=== PATIENT | female | born 1945 | race Caucasian/White ===

== ENCOUNTER 2019-11-21 15:18 | Outpatient (CLI) | payer MEDICARE, SELFPAY ==
--- NOTE | 2019-11-21 15:38 | XR_ITS ---
WS: [id number] Left foot, 11/21/2019 Clinical Data: LEFT FOOT PAIN Comparison: None. Findings: No fractures or dislocations are seen. No bone destruction or erosion is noted. The joint spaces and soft tissues are normal. There is a plantar spur. XR/XR foot LT min 3V* [id number] Impression: Negative left foot.
== END 2019-11-21 15:19 | disposition home or self-care (01) ==
LOC: RADOUTREAD 15:33
PROVIDERS: Family Provider Family Medicine; Visit Provider Nurse Practitioner Family
DX: M79.672 Pain in left foot (principal)
CPT/HCPCS: 73630

== ENCOUNTER 2020-06-21 20:21 | Observation (INO) | payer MEDICARE, OTHER, SELFPAY ==
--- NOTE | 2020-06-21 20:30 | XRR_ITS ---
PROCEDURE INFORMATION: Exam: XR Chest Exam date and time: 06/21/2020 8:59 PM Age: 75 years old Clinical indication: Shortness of breath; Patient HX: SOB; Additional info: Reduced breath sounds TECHNIQUE: Imaging protocol: XR of the chest. Views: 1 view. COMPARISON: CR [place] RIGHT [id number] 04/17/2017 11:38 AM FINDINGS: Lungs: Unremarkable. No consolidation. Pleural spaces: Unremarkable. No pleural effusion. No pneumothorax. Heart/Mediastinum: Moderate enlargement of the cardiac silhouette. Bones/joints: Unremarkable. XR/XR chest 1V portable [id number] IMPRESSION: No focal acute pulmonary disease.
--- NOTE | 2020-06-21 20:30 | CTR_ITS ---
PROCEDURE INFORMATION: Exam: CT Head Without Contrast Exam date and time: 06/21/2020 9:42 PM Age: 75 years old Clinical indication: Pain; Patient HX: Headache with dizziness and n/v. History of TIA and CVA. TECHNIQUE: Imaging protocol: Computed tomography of the head without contrast. Radiation optimization: All CT scans at this facility use at least one of these dose optimization techniques: automated exposure control; mA and/or kV adjustment per patient size (includes targeted exams where dose is matched to clinical indication); or iterative reconstruction. COMPARISON: No relevant prior studies available. RADIATION DOSE METRICS: Total DLP (mGy-cm): 865.68 FINDINGS: Brain: There is moderate cerebral atrophy. Small lacunar infarct in the posterior limb of the left internal capsule. No intracranial hemorrhage. No intracranial mass. Solorio matter and white matter interfaces are preserved. Midline shift of brain.There is mild diffuse heterogeneity of the white matter attenuation, consistent with chronic white matter ischemic changes. Small areas of encephalomalacia in the right cerebellum. Cerebral ventricles: No ventriculomegaly. Bones/joints: Unremarkable. No acute fracture. Paranasal sinuses: Visualized sinuses are unremarkable. No fluid levels. Mastoid air cells: Visualized mastoid air cells are well aerated. Soft tissues: Unremarkable. CT/CT head wo con* [id number] IMPRESSION: 1. No acute intracranial abnormality. 2. Small areas chronic ischemic brain change. Radiation Dose CTDIVOL = (mGy): DLP = 865.68 (mGy-cm)
--- NOTE | 2020-06-21 20:30 | CTR_ITS ---
PROCEDURE INFORMATION: Exam: CT Angiography Head With Contrast, Arteriography Exam date and time: 06/21/2020 9:42 PM Age: 75 years old Clinical indication: Pain; Other: Dizzy; Headache; Patient HX: FREY with dizziness and n/v. History of TIA and CVA. ; Additional info: Dizziness. H/o cva/tia's TECHNIQUE: Imaging protocol: Computed tomography angiography of the head with contrast. Exam focused on the arteries. 3D rendering (Not supervised by radiologist): MIP and/or 3D reconstructed images were created by the technologist. Radiation optimization: All CT scans at this facility use at least one of these dose optimization techniques: automated exposure control; mA and/or kV adjustment per patient size (includes targeted exams where dose is matched to clinical indication); or iterative reconstruction. Contrast material: VISI 320; Contrast volume: 75 ml; Contrast route: INTRAVENOUS (IV); COMPARISON: CT head wo con* [id number] 06/21/2020 9:59 PM RADIATION DOSE METRICS: Total DLP (mGy-cm): 2421.75 FINDINGS: ANTERIOR CIRCULATION: Right internal carotid artery: Unremarkable. Intracranial segment is patent with no significant stenosis. No aneurysm. Right middle cerebral artery: Unremarkable. No occlusion or significant stenosis. No aneurysm. Right anterior cerebral artery: Unremarkable. No occlusion or significant stenosis. No aneurysm. Left internal carotid artery: Unremarkable. Intracranial segment is patent with no significant stenosis. No aneurysm. Left middle cerebral artery: Unremarkable. No occlusion or significant stenosis. No aneurysm. Left anterior cerebral artery: Unremarkable. No occlusion or significant stenosis. No aneurysm. POSTERIOR CIRCULATION: Right vertebral artery: Unremarkable. No occlusion or significant stenosis. No aneurysm. Left vertebral artery: Unremarkable. No occlusion or significant stenosis. No aneurysm. Basilar artery: Unremarkable. No occlusion or significant stenosis. No aneurysm. Right posterior cerebral artery: Unremarkable. No occlusion or significant stenosis. No aneurysm. Left posterior cerebral artery: Unremarkable. No occlusion or significant stenosis. No aneurysm. Brain: No definite mass, mass effect, or midline shift. There is moderate cerebral atrophy. Cerebral ventricles: No ventriculomegaly. Bones/joints: Unremarkable. No acute fracture. Soft tissues: Unremarkable. IMPRESSION: No intracranial large arterial vessel significant stenosis or occlusion. PROCEDURE INFORMATION: Exam: CT Angiography Neck With Contrast Exam date and time: 06/21/2020 9:42 PM Age: 75 years old Clinical indication: Pain; Other: Dizzy; Headache; Patient HX: FREY with dizziness and n/v. History of TIA and CVA. ; Additional info: Dizziness. H/o cva/tia's TECHNIQUE: Imaging protocol: Computed tomography angiography of the neck with contrast. 3D rendering (Not supervised by radiologist): MIP and/or 3D reconstructed images were created by the technologist. Radiation optimization: All CT scans at this facility use at least one of these dose optimization techniques: automated exposure control; mA and/or kV adjustment per patient size (includes targeted exams where dose is matched to clinical indication); or iterative reconstruction. Contrast material: VISI 320; Contrast volume: 75 ml; Contrast route: INTRAVENOUS (IV); COMPARISON: CT head wo con* [id number] 06/21/2020 9:59 PM RADIATION DOSE METRICS: Total DLP (mGy-cm): 2421.75 FINDINGS: Right common carotid artery: No stenosis. No dissection or occlusion. Right internal carotid artery: No stenosis of the extracranial segment. No dissection or occlusion. Minimal calcified plaque in the bifurcation. Right external carotid artery: No occlusion or stenosis of the origin. Right vertebral artery: No stenosis. No dissection or occlusion. Left common carotid artery: No stenosis. No dissection or occlusion. Left internal carotid artery: No stenosis of the extracranial segment. No dissection or occlusion. Small volume of calcified smoothly marginated plaque in the bifurcation. Left external carotid artery: No occlusion or stenosis of the origin. Left vertebral artery: No stenosis. No dissection or occlusion. Bones/joints: No acute fracture. Soft tissues: Normal. No significant soft tissue swelling. CT/CT angio headneck* [id number] IMPRESSION: 1. Negative for vascular occlusion. 2. Less than 50% stenosis of the carotid arteries. REFERENCES: NASCET CRITERIA. The degree of internal carotid artery stenosis is based on NASCET criteria. Normal is no stenosis. Mild is less than 50% stenosis. Moderate is 50-69% stenosis. Severe is 70% to 99% stenosis. Total occlusion is no detectable patent lumen. Radiation Dose CTDIVOL = (mGy): DLP = 2421.75~2421.75 (mGy-cm)
[2020-06-21 20:34] VITALS: BP 165/79; PULSE 71; RESP 19; TEMP 36.5; O2SAT 97; BMI 45.5
--- NOTE | 2020-06-21 20:35 | ECG_ITS ---
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 Measurements Intervals [place] Rate: 71 P: 59 VA: 201 QRS: 21 QRSD: 112 T: 40 QT: 415 QTc: 452 Interpretive Statements SINUS RHYTHM WITH OCCASIONAL ECTOPIC PREMATURE COMPLEXES SEPTAL MYOCARDIAL INFARCTION , OF INDETERMINATE AGE [40+ ms Q WAVE IN V1/V2] No previous ECG available for comparison Electronically Signed On 06-21-2020 20:50:25 CDT by Tony Rosas M.D. [id number]
[2020-06-21 20:39] VITALS: BP 165/79; PULSE 73; RESP 17; O2SAT 98
[2020-06-21] MEDS: sodium chloride 0.9% 1,000 ML 999 ML IV (20:49)
[2020-06-21] MEDS: metoclopramide 5 mg/mL SDV 2 mL 10 MG IVP (20:49)
[2020-06-21 20:50] VITALS: BP 165/79; PULSE 73; RESP 16; O2SAT 99
[2020-06-21 20:50] LABS: Basophils # 0.1 10^3/uL (0.0-0.1); Eosinophils # 0.1 10^3/uL (0.0-0.8); Eosinophils % 1.2 %; Hematocrit 44.7 % (37.0-47.0); Hemoglobin 14.6 g/dL (11.5-15.3); Lymphocytes # 1.8 10^3/uL (0.8-4.8); Lymphocytes % 22.2 %; Mean Corpuscular HGB Conc 32.7 g/dL (30.0-36.0); Mean Corpuscular Hemoglobin 30.9 pg (28.0-34.0); Mean Corpuscular Volume 94.5 fL (81-99); Mean Platelet Volume 11.9 fL (7.4-10.4); Monocytes # 0.8 10^3/uL (0.2-0.9); Monocytes % 9.4 %; Neutrophils # 5.44 10^3/uL (1.8-7.7); Neutrophils % 65.8 %; Nucleated Red Blood Cells % 0 %; Platelet Count 210 10^3/cmm (130-400); Red Blood Count 4.73 10^6/uL (4.1-5.3); Red Cell Distribution Width 14.2 % (12.1-15.1); White Blood Count 8.3 10^3/uL (4.0-10.0)
[2020-06-21 21:15] LABS: Troponin(5th) Baseline 13 ng/L (0-10)
[2020-06-21 21:19] LABS: Lactate (Lactic Acid level) 1.5 mmol/L (0.5-2.2)
[2020-06-21 21:25] LABS: Alanine Aminotransferase 18 U/L (0-33); Albumin Level 4.2 g/dL (3.5-5.2); Alkaline Phosphatase 79 IU/L (35-105); Aspartate Amino Transferase 19 U/L (0-32); Blood Urea Nitrogen 32 mg/dL (8-23); Calcium 8.9 mg/dL (8.5-10.5); Carbon Dioxide 24 mmol/L (22-29); Chloride 101 mmol/L (98-107); Globulin 2.5 g/dL (1.3-4.6); Glucose 136 mg/dL (65-115); Lipase 100 U/L (13-60); NT Pro B Type Natriuretic Pept 345 pg/mL (0-450); Osmolality Calculated 291 mOsm/kg (285-295); Sodium 136 mmol/L (136-145); Total Bilirubin 0.2 mg/dL (0.15-1.2); Total Protein 6.7 g/dL (6.6-8.7)
[2020-06-21 21:26] LABS: Anion Gap 15.4 (5-19); Potassium 4.4 mmol/L (3.5-5.1)
[2020-06-21 21:33] VITALS: BP 162/81; PULSE 72; RESP 21; O2SAT 92
[2020-06-21 22:29] VITALS: BP 176/76; PULSE 72; RESP 16; O2SAT 94
--- NOTE | 2020-06-21 22:35 | ECG_ITS ---
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 Measurements Intervals [place] Rate: 76 P: 66 [place]: 191 QRS: 25 QRSD: 113 T: 46 QT: 408 QTc: 459 Interpretive Statements SINUS RHYTHM MODERATE INTRAVENTRICULAR CONDUCTION DELAY [110+ ms QRS DURATION] INTERPRETATION BASED ON A DEFAULT AGE OF 40 YEARS Compared to ECG 06/21/2020 20:44:28 Intraventricular conduction delay now present Myocardial infarct finding no longer present Electronically Signed On 06-24-2020 12:25:44 CDT by Svetlana Milton M.D. [id number]
[2020-06-21 23:10] LABS: Specific Gravity, Urine 1.015 (1.005-1.030); Urine Appearance Hazy (CLEAR); Urine Color Yellow (Yellow); pH Urine 5 (5-7)
[2020-06-21 23:11] LABS: Add Urine Microscopic? YES; Bilirubin Urine Neg (Negative); Blood Urine Neg (Negative); Glucose Urine UA 4+ (Normal); Ketones Urine 1+ (Negative); Leukocyte Esterase Urine 1+ (Negative); Nitrate Urine Negative (Negative); Protein Urine 1+ (Negative); RBC Urine 0-4 /hpf (0-2); Urobilinogen Urine Norm (Negative)
[2020-06-21 23:12] LABS: Add Urine Culture? Yes; Bacteria Urine 1+ /hpf; Squamous Epithelial Cell Urine 0-4 /hpf (0-5); WBC Urine 25-40 /hpf (0-5)
[2020-06-21 23:44] LABS: Troponin 5 2HR 12.73 ng/L (0-10)
[2020-06-21] MEDS: iodixanol 320 mg/mL 100mL Btl IV (23:48)
[2020-06-21 23:55] LABS: Troponin 5 2HR Delta -0.27 ABS# (0-10)
[2020-06-22] VITALS (9 sets, daily range): BP systolic 132–154; BP diastolic 73–96; PULSE 56–76; RESP 17–18; TEMP 36.4–36.9; O2SAT 93–96
--- NOTE | 2020-06-22 00:22 | P.HP_ITS ---
Providers/Chief Complaint Primary Care Provider: Karan Staples DO Chief Complaint: headache, vomiting and dizzy History of Present Illness Michelle Lutz is a 75 year old female who has history of type 2 diabetes, hypertension, previous CVA, cerebellar stroke presented today with chief complaint of nausea vomiting dizziness. Patient is stating that she worked all day today and when around 7 PM she was watching television she started experiencing blurry vision associated with nausea and vomiting she has had multiple episodes. She did not experience any chest pain, fever, shortness of breath, diarrhea or dysuria. No facial droop, or focal motor deficits were noted by the patient. She called her son who brought her to the hospital. Son is stating that when he arrived he noticed mild slurring of speech however he is also endorsing that because of previous CVA she gets slurring of speech with anxiety and stressful situations. Her symptoms totally resolved by the time she arrived in the ER. She denies denies any recurrent nausea or vomiting. Of note, she is endorsing constant tinnitus of right ear, pressure behind her right eye, has recently received intraocular injections for macular degeneration, patient is stating that one time her pressure in the eye was 33, however recently it was 16&18mmhg, at the time my evaluation I do not see any hardening of her eyeball, no redness or active vision loss however she is endorsing a bubble that she is able to see but denying floaters. EKG showing sinus rhythm with PVCs, hemodynamically stable hypertensive CBC BMP unremarkable, CT head and angiogram head and neck unremarkable less than 50% carotid stenosis. [facility] telemetry stroke team recommended overnight monitoring and MRI, patient wants to get diagnostic MRI in the morning Review of Systems Const: Denies: fever(s) Eyes: Reports: change in vision, blurry vision and seeing flashes ENMT: Denies: throat pain Card: Denies: chest pain Resp: Denies: dyspnea GI: Reports: nausea and vomiting : Denies: flank pain Musc: Denies: neck pain Skin/Breast: Denies: rash Neuro: Denies: headache(s) Psych: Denies: anxiety Endo: Denies: polyuria Terrence/Lymph: Denies: easy bruising All/Imm: Denies: urticaria Medications/Allergies Allergies Allergy/AdvReac Type Severity Reaction Status Date / Time Penicillins Allergy ALGY-Hives Verified 06/21/20 20:39 PFSH Acute PFSH: Medical History Diabetes DJD (degenerative joint disease) Dyslipidemia Hypertension Hypothyroid Osteoporosis Surgical History H/O arthroscopy Family History Other CAD (coronary artery disease) Cancer Diabetes Hypertension Social History Smoking and tobacco status: never smoked Alcohol intake: never Substance/Drug Use: never Lives independently: Yes Housing: House Vitals/I&O/Wt Last Vital Signs Temp 97.7 F 06/21/20 20:34 Pulse 72 06/21/20 22:29 Resp 16 06/21/20 22:29 BP 176/76 06/21/20 22:29 Pulse Ox 94 06/21/20 22:29 06/21/20 06/21/20 06/22/20 14:59 22:59 06:59 Intake Total 1000 / 1000 Balance 1000 / 1000 Weight last 48 hrs Weight 127.913 kg Physical Exam Narrative: EXAM NARRATIVE: elderly female currently laying supine in her bed without any active discomfort chest pain abdominal pain or shortness of breath Son at the bedside Hemodynamically stable saturating well on room air Morbid obesity S1, S2 no murmur appreciated, no carotid bruit Patient is endorsing tinnitus of right ear No acute respiratory distress no audible wheezing or stridor Abdomen distended bowel sounds present soft on palpation Lower extremity no edema gangrene or ulcer NIH score 0 Awake alert oriented x3 GCS 15 No skin changes of cellulitis gangrene or joint swelling noted Data : 06/21/20 20:30 06/21/20 20:30 A&P Assessment and plan (1) Dizziness: Status: Acute (2) Vomiting: Status: Acute (3) Tinnitus: Status: Acute Additional A&P Information TIA Her symptoms of dizziness nausea and vomiting resolved Previous history of cerebellar stroke At home she takes high-dose aspirin along Plavix, will check lipid panel and A1c MRI head in the morning to rule out acute stroke, for ischemic stroke I do not think dual antiplatelet therapy regimen will change however she might benefit from P2 Y 12 assay to see effectiveness of Plavix My other differential would be glaucoma which can present with similar symptoms, if her MRI is unremarkable would recommend retinal exam and glaucoma evaluation, no active acute glaucoma signs or symptoms no eye redness or headache Patient is complaining of constant tinnitus, she recently got intraocular steroid injections as well, M?ni?re's disease would also be considered in differential, she is morbidly obese with type 2 diabetes Do not hear any carotid bruit or aortic stenosis murmur that can present with co nstant tinnitus, MRI will rule out any intracranial tumor as well EKG showing PVCs we will monitor on telemetry overnight Type 2 diabetes: Moderate sliding scale check A1c panel, consistent carb diet Hypertension: Would use lisinopril and amlodipine for now, would not aggressively decrease her blood pressure for now Cardiac/consistent carb diet Full code DVT prophylaxis Lovenox Attestations Medical Necessity Statement*: Anticipating discharge in less than 48 hours will need MRI for TIA work-up Time Spent in Patient Care: (>than 50% of time spent in counselling and/or direct pt care on unit) . 50mins Coding Level of Care Code Acute Senior Application Programmer for Chg Fwd Diagnoses Dizziness R42 Vomiting R11.10 Tinnitus H93.19
--- NOTE | 2020-06-22 00:27 | W.ED.HA ---
HPI - Headache General: Chief Complaint: Headache Stated Complaint: headache, vomiting and dizzy Time Seen by Provider: 06/21/20 20:30 History of Present Illness: HPI Narrative: The patient is a 75-year-old female with past medical history multiple CVAs who comes to the ER complaining of dizziness and acute nausea and vomiting. She says the past couple days she woke up not feeling well particularly today. This evening approximately 1 hour prior to arrival she had acute dizziness nausea and vomiting. She says one of her strokes in the past presented with acute nausea and vomiting and dizziness as well. Denies headache. Onset description: gradually Severity: moderate Exacerbating factors: other (Movement makes her dizziness worse) Associated symptoms: Reports nausea, vomiting and other (Dizziness); Deny chest pain, confusion or rash Review of Systems General: Reports: 10 or more systems reviewed and unremarkable except in HPI and below Const: Denies: fatigue Eyes: Denies: change in vision, blurry vision or eye redness ENMT: Denies: throat pain, swelling of lips/tongue, ear or mastoid pain or nasal congestion Card: Denies: chest pain, palpitations, irregular heart rhythm, edema, dyspnea on exertion or orthopnea Resp: Denies: dyspnea, productive cough or non-productive cough GI: Reports: nausea and vomiting : Denies: flank pain, difficulty voiding, urinary frequency or urinary urgency Musc: Denies: neck pain, back pain, extremity pain, joint pain, joint redness, limited range of motion or muscle weakness Skin/Breast: Denies: rash, pruritus, erythema, skin pain or skin tenderness Neuro: Reports: dizziness; Denies: headache(s), numbness in extremities, weakness in extremities, sensory changes, difficulty walking, confusion or Slurred speech present Psych: Denies: anxiety or depression Endo: Denies: polyuria All/Imm: Denies: urticaria, throat swelling or tongue swelling PFSH ED PFSH: Medical History (Updated 06/22/20 @ 00:35 by Tino Holliday MD) Diabetes DJD (degenerative joint disease) Dyslipidemia Hypertension Hypothyroid Osteoporosis Surgical History (Updated 06/22/20 @ 00:26 by Duncan Galindo MD) H/O arthroscopy Family History (Updated 06/22/20 @ 00:26 by Duncan Galindo MD) Other CAD (coronary artery disease) Cancer Diabetes Hypertension Social History (Updated 06/22/20 @ 00:26 by Duncan Galindo MD) Smoking and tobacco status: never smoked Alcohol intake: never Substance/Drug Use: never Lives independently: Yes Housing: House Physical Exam Const: COMMON NORMALS: no acute distress, average body habitus, patient oriented x3, no limitations, healthy appearing, alert and well nourished GENERAL APPEARANCE: cooperative, comfortable, well kempt and well developed ORIENTATION/CONSCIOUSNESS: Yes awake, Yes oriented to person, Yes oriented to place and Yes oriented to time HENMT: COMMON NORMALS: normocephalic, external ears normal and Normal external nose present HEAD & SCALP: normal to inspection and normocephalic NOSE: Normal external nose present EXTERNAL EAR: Yes external ears normal MOUTH: Normal oral and palatal mucosa present THROAT: posterior oropharynx normal Eye: COMMON NORMALS: Equal, round and reactive pupils present and EOMs intact bilaterally GENERAL EYE: appearance normal, both eyes and all related structures PUPIL: Yes Equal, round and reactive pupils present Neck/C-Spine: COMMON NORMALS: full ROM, no lymphadenopathy, no meningeal signs and no JVD GENERAL: Yes normal visual inspection Lymph: LYMPHATIC: no lymphadenopathy noted Chest: COMMONS NORMALS: normal inspection of the chest and normal palpation of entire chest wall Resp: COMMON NORMALS: normal respiratory effort, No retractions, No use of accessory muscles, clear to auscultation bilaterally and percussion normal EFFORT & INSPECTION: Yes able to speak in complete sentences AUSCULTATION: clear to auscultation bilaterally PERCUSSION: percussion normal Cardio: COMMON NORMALS: no JVD, regular rate, regular rhythm, S1 normal heart sound present, S2 normal heart sound present and Peripheral pulses 2+ throughout RATE: regular rate RHYTHM: regular rhythm HEART SOUNDS: S1 normal heart sound present and S2 normal heart sound present PERIPHERAL PULSES: Peripheral pulses 2+ throughout GI: COMMON NORMALS: Normal to inspection, nondistended, normoactive bowel sounds present, Soft to palpation, non-tender and no masses INSPECTION: Yes normal to inspection PALPATION: Yes Soft to palpation : COMMON NORMALS: Yes no CVA tenderness BLADDER/KIDNEY EXAM: Yes no CVA tenderness Back/Pelvis: COMMON NORMALS: no CVA tenderness, thoracic and lumbar spine normal to inspection, no thoracic nor lumbar tenderness and thoraco-lumbar ROM normal Extremity: COMMON NORMALS: normal to inspection, full ROM, capillary refill normal, no joint enlargement and no pedal edema GENERAL: Yes normal exam except as noted Neuro: COMMON NORMALS: patient oriented x3, CN's II-XII intact bilaterally, moves all extremities, no focal motor deficits, no sensory deficits noted and gait normal SENSORIUM/ORIENTATION: Yes alert, Yes oriented to person, Yes oriented to place and Yes oriented to time MENINGEAL SIGNS: Yes no meningeal signs Psych: COMMON NORMALS: mental status grossly normal, Normal thought process present, cooperative, normal affect and speech normal APPEARANCE: Yes well kempt ATTITUDE: Yes calm SPEECH: Yes normal speech THOUGHT PROCESS: Normal thought process present Skin: COMMON NORMALS: no rashes or lesions noted GENERAL SKIN EXAM: no rashes or lesions noted Course Vital Signs: Vital signs: Vital Signs Temperature 97.7 F 06/21/20 20:34 Pulse Rate 72 06/21/20 22:29 Respiratory Rate 16 06/21/20 22:29 Blood Pressure 176/76 06/21/20 22:29 Pulse Oximetry 94 06/21/20 22:29 MDM - Headache MDM Narrative: Medical decision making narrative: The patient is a 75-year-old female who came to the ER with acute dizziness and nausea and vomiting. She was given IV fluids and Zofran with improvement of those symptoms. She says she is presented before with a stroke similarly. CT does show she has had an old cerebellar stroke which does present with nausea and dizziness though there is no acute hemorrhage or stroke noted. Discussed with [facility] stroke Dr. Philippe who recommended observation and MRI in the morning. CT angiogram head and neck shows no significant stenoses. Of note her creatinine is mildly elevated and she does have chronic kidney disease. Benefits of performing CT angiogram of head and neck outweigh the risks of worsening kidney function. IV fluids should help this some as well. Discussed with Dr. Galindo who accepts for observation. Her symptoms did mostly resolved in the ED after Zofran and fluids which is encouraging. She never had focal weakness or slurred speech in the ED. Lab Data: Labs: Lab Results 06/21/20 06/21/20 06/21/20 Range/Units 20:30 20:30 20:30 WBC 8.3 (4.0-10.0) 10^3/ uL RBC 4.73 (4.1-5.3) 10^6/u L Hgb 14.6 (11.5-15.3) g/dL Hct 44.7 (37.0-47.0) % MCV 94.5 (81-99) fL MCH 30.9 (28.0-34.0) pg MCHC 32.7 (30.0-36.0) g/dL RDW 14.2 (12.1-15.1) % Plt Count 210 (130-400) 10^3/c mm MPV 11.9 H (7.4-10.4) fL Neut % (Auto) 65.8 % Lymph % (Auto) 22.2 % Divide % (Auto) 9.4 % Eos % (Auto) 1.2 % Baso % (Auto) 1.0 % Neut # (Auto) 5.44 (1.8-7.7) 10^3/u L Lymph # (Auto) 1.8 (0.8-4.8) 10^3/u L Divide # (Auto) 0.8 (0.2-0.9) 10^3/u L Eos # (Auto) 0.1 (0.0-0.8) 10^3/u L Baso # (Auto) 0.1 (0.0-0.1) 10^3/u L Nucleated RBC % (a uto) 0 % Nucleated RBCs # 0.0 /100WBC Sodium 136 (136-145) mmol/L Potassium 4.4 (3.5-5.1) mmol/L Chloride 101 (98-107) mmol/L Carbon Dioxide 24 (22-29) mmol/L Anion Gap 15.4 (5-19) BUN 32 H (8-23) mg/dL Creatinine 1.4 H (0.5-0.9) mg/dL GFR Calculation Not Reportable Glucose 136 H (65-115) mg/dL Calculated Osmolal ity 291 (285-295) mOsm/k g Lactate 1.5 (0.5-2.2) mmol/L Calcium 8.9 (8.5-10.5) mg/dL Total Bilirubin 0.2 (0.15-1.2) mg/dL AST 19 (0-32) U/L ALT 18 (0-33) U/L Alkaline Phosphata se 79 (35-105) IU/L Troponin T Baselin e (0-10) ng/L Troponin T 120 Min [place] (0-10) ng/L Delta Troponin T (0-10) ABS# NT-Pro-B Natriuret Pep 345 (0-450) pg/mL Total Protein 6.7 (6.6-8.7) g/dL Albumin 4.2 (3.5-5.2) g/dL Globulin 2.5 (1.3-4.6) g/dL Lipase 100 H (13-60) U/L Urine Color (Yellow) Urine Appearance (CLEAR) Urine pH (5-7) Ur Specific Gravit y (1.005-1.030) Urine Protein (Negative) Urine Glucose (UA) (Normal) Urine Ketones (Negative) Urine Blood (Negative) Urine Nitrate (Negative) Urine Bilirubin (Negative) Urine Urobilinogen (Negative) mg/dL Ur Leukocyte Natasha ase (Negative) Urine RBC (0-2) /hpf Urine WBC (0-5) /hpf Ur Squamous Epith Cells (0-5) /hpf Amorphous Sediment Urine Bacteria (NONE) /hpf 06/21/20 06/21/20 06/21/20 Range/Units 20:30 21:40 23:10 WBC (4.0-10.0) 10^3/ uL RBC (4.1-5.3) 10^6/u L Hgb (11.5-15.3) g/dL Hct (37.0-47.0) % MCV (81-99) fL MCH (28.0-34.0) pg MCHC (30.0-36.0) g/dL RDW (12.1-15.1) % Plt Count (130-400) 10^3/c mm MPV (7.4-10.4) fL Neut % (Auto) % Lymph % (Auto) % Divide % (Auto) % Eos % (Auto) % Baso % (Auto) % Neut # (Auto) (1.8-7.7) 10^3/u L Lymph # (Auto) (0.8-4.8) 10^3/u L Divide # (Auto) (0.2-0.9) 10^3/u L Eos # (Auto) (0.0-0.8) 10^3/u L Baso # (Auto) (0.0-0.1) 10^3/u L Nucleated RBC % (a uto) % Nucleated RBCs # /100WBC Sodium (136-145) mmol/L Potassium (3.5-5.1) mmol/L Chloride (98-107) mmol/L Carbon Dioxide (22-29) mmol/L Anion Gap (5-19) BUN (8-23) mg/dL Creatinine (0.5-0.9) mg/dL GFR Calculation Glucose (65-115) mg/dL Calculated Osmolal ity (285-295) mOsm/k g Lactate (0.5-2.2) mmol/L Calcium (8.5-10.5) mg/dL Total Bilirubin (0.15-1.2) mg/dL AST (0-32) U/L ALT (0-33) U/L Alkaline Phosphata se (35-105) IU/L Troponin T Baselin e 13 H (0-10) ng/L Troponin T 120 Min [place] 12.73 H (0-10) ng/L Delta Troponin T -0.27 L (0-10) ABS# NT-Pro-B Natriuret Pep (0-450) pg/mL Total Protein (6.6-8.7) g/dL Albumin (3.5-5.2) g/dL Globulin (1.3-4.6) g/dL Lipase (13-60) U/L Urine Color Yellow (Yellow) Urine Appearance Hazy A (CLEAR) Urine pH 5 (5-7) Ur Specific Gravit y 1.015 (1.005-1.030) Urine Protein 1+ H (Negative) Urine Glucose (UA) 4+ H (Normal) Urine Ketones 1+ H (Negative) Urine Blood Neg (Negative) Urine Nitrate Negative (Negative) Urine Bilirubin Neg (Negative) Urine Urobilinogen Norm (Negative) mg/dL Ur Leukocyte Natasha ase 1+ H (Negative) Urine RBC 0-4 H (0-2) /hpf Urine WBC 25-40 H (0-5) /hpf Ur Squamous Epith Cells 0-4 H (0-5) /hpf Amorphous Sediment Not Reportable Urine Bacteria 1+ H (NONE) /hpf Discharge Plan Discharge Patient Disposition: Placed in Observation Clinical Impression: Dizziness, Vomiting Coding Level of Care Code ED Technical Administrative Assistant for Padilla Boyer
[2020-06-22 01:20] LABS: Chol HDL Ratio 3.69 mg/dL (0.0-4.40); Cholesterol 203 mg/dL (0-200); HDL Cholesterol 55 mg/dL (60-100); LDL Cholesterol Calculated 105 mg/dL (50-129); LDL HDL Ratio 1.91 RATIO (0.00-3.22); Triglycerides 215 mg/dL (0-150)
[2020-06-22 01:31] LABS: Estmated Average Glucose 212
[2020-06-22 03:18] LABS: Troponin 5 6HR 15.35 ng/L (0-10); Troponin 5 6HR Delta 2.35 ng/L (0-12)
[2020-06-22 03:28] LABS: Thyroid Stimulating Hormone 8.47 uIU/mL (0.27-4.20)
[2020-06-22] MEDS: atorvastatin 40 mg Tablet PO (04:29)
[2020-06-22] MEDS: enoxaparin 40 mg/0.4 mL Syringe SUBCUT (04:29)
[2020-06-22] MEDS: levothyroxine 25 mcg Tablet PO (06:06)
[2020-06-22 06:19] LABS: Glucose Point of Care 134 mg/dL (70-110)
[2020-06-22] MEDS: aspirin 325 mg EC Tablet PO (08:50)
[2020-06-22] MEDS: clopidogrel 75 mg Tablet PO (08:50)
[2020-06-22] MEDS: losartan 50 mg Tablet 25 MG PO (08:51)
[2020-06-22] MEDS: amlodipine 10 mg Tablet PO (08:51)
[2020-06-22] MEDS: metoprolol tartrate 25 mg Tablet PO (08:51)
--- NOTE | 2020-06-22 10:15 | MR_ITS ---
WS: [id number] MRI BRAIN WITHOUT CONTRAST HISTORY: TIA COMPARISON: 06/21/2020 CT head TECHNIQUE: Diffusion imaging, multiplanar T1, T2 and FLAIR imaging obtained. No acute diffusion-weighted abnormalities. There is extensive T2 and FLAIR signal hyperintensities th roughout the brain. Distribution is bilateral. There is a larger infarct in the RIGHT cerebellum. No evidence for hemorrhage. Ventricles and extra-axial spaces are normal. Normal appearance of the pituitary gland. Dural venous sinuses and [place] demonstrate no abnormality on this unenhanced studies. Paranasal sinuses: Clear. Mastoid air cells: Normal. Calvarium and scalp: Intact. MR/MR head wo con* [id number] IMPRESSION: 1. No evidence for an acute hemorrhage or acute infarct. 2. Moderate bilateral nearly symmetric chronic microvascular ischemic disease with the prior RIGHT cerebellar infarct.
[2020-06-22 11:19] LABS: Glucose Point of Care 287 mg/dL (70-110)
[2020-06-22 12:12] LABS: Basophils # 0.1 10^3/uL (0.0-0.1); Eosinophils # 0.1 10^3/uL (0.0-0.8); Eosinophils % 0.9 %; Hematocrit 43.4 % (37.0-47.0); Hemoglobin 13.3 g/dL (11.5-15.3); Lymphocytes # 1.1 10^3/uL (0.8-4.8); Lymphocytes % 15.5 %; Mean Corpuscular HGB Conc 30.6 g/dL (30.0-36.0); Mean Corpuscular Hemoglobin 30.5 pg (28.0-34.0); Mean Corpuscular Volume 99.5 fL (81-99); Mean Platelet Volume 11.9 fL (7.4-10.4); Monocytes # 0.6 10^3/uL (0.2-0.9); Monocytes % 8.2 %; Neutrophils # 5.14 10^3/uL (1.8-7.7); Neutrophils % 74.3 %; Nucleated Red Blood Cells % 0 %; Platelet Count 161 10^3/cmm (130-400); Red Blood Count 4.36 10^6/uL (4.1-5.3); Red Cell Distribution Width 14.6 % (12.1-15.1); White Blood Count 6.9 10^3/uL (4.0-10.0)
--- NOTE | 2020-06-22 12:21 | PM.DCS ---
Discharge Providers Date of Admission: 06/22/20 01:34 Date of Discharge: June 22, 2020 Attending Provider at Admission: Duncan Galindo MD Attending Provider at Discharge: Jad Renteria MD Primary Care Provider: Karan Staples DO Diagnoses at Discharge Discharge Diagnosis (1) Dizziness: Status: Acute (2) Vomiting: Status: Acute (3) Tinnitus: Status: Acute (4) Diabetes: Status: Acute (5) Hypertension: Status: Acute Reason for Visit Reason for Visit: headache, vomiting and dizzy Hospital Course Hospital Course Michelle Lutz is a 75 year old female who has history of type 2 diabetes, hypertension, previous CVA, cerebellar stroke presented today with chief complaint of nausea vomiting dizziness. Patient is stating that she worked all day today and when around 7 PM she was watching television she started experiencing blurry vision associated with nausea and vomiting she has had multiple episodes. She did not experience any chest pain, fever, shortness of breath, diarrhea or dysuria. No facial droop, or focal motor deficits were noted by the patient. She called her son who brought her to the hospital. Son is stating that when he arrived he noticed mild slurring of speech however he is also endorsing that because of previous CVA she gets slurring of speech with anxiety and stressful situations. Her symptoms totally resolved by the time she arrived in the ER. She denies denies any recurrent nausea or vomiting. Of note, she is endorsing constant tinnitus of right ear, pressure behind her right eye, has recently received intraocular injections for macular degeneration, patient is stating that one time her pressure in the eye was 33, however recently it was 16&18mmhg, at the time my evaluation I do not see any hardening of her eyeball, no redness or active vision loss however she is endorsing a bubble that she is able to see but denying floaters. EKG showing sinus rhythm with PVCs, hemodynamically stable hypertensive CBC BMP unremarkable, CT head and angiogram head and neck unremarkable less than 50% carotid stenosis. [facility] telemetry stroke team recommended overnight monitoring and MRI, patient wants to get diagnostic MRI in the morning. Patient was monitored in the hospital. Patient did not have any further events. Telemetry was stable. MRI was done which was negative for any acute ischemia. Blood work showed deranged lipid panel and A1c of 9. On admission she was also found to have mild KELSEY with low blood pressures for which her home dose of antihypertensives were adjusted. Going forward she is supposed to take losartan 25 mg once daily, metoprolol 50 mg twice daily. For diabetes she supposed to continue her Jardiance and 70/30 insulin 40 units at night and as per fasting blood sugar in the morning. Patient is been discharged hemodynamically stable condition with advice to follow-up with her primary care provider within next 4 to 5 days. Patient's care plan was discussed with her in detail and she was agreeable to all. Physical Exam Narrative: EXAM NARRATIVE: elderly female currently laying supine in her bed without any active discomfort chest pain abdominal pain or shortness of breath Son at the bedside Hemodynamically stable saturating well on room air Morbid obesity S1, S2 no murmur appreciated, no carotid bruit Patient is endorsing tinnitus of right ear No acute respiratory distress no audible wheezing or stridor Abdomen distended bowel sounds present soft on palpation Lower extremity no edema gangrene or ulcer NIH score 0 Awake alert oriented x3 GCS 15 No skin changes of cellulitis gangrene or joint swelling noted Discharge Data Data Completed and Pending: Completed Studies During Hospitalization Category Date Time Status CT angio headneck * [id number] Urge nt Cat Scan 06/21/20 20:[address] head wo con* 7 0450 Urgent Cat Scan 06/21/20 20:30 Completed XR chest 1V myrtle ble [id number] Urgent Exams 06/21/20 20:30 Completed MR head wo con* 7 0551 Routine MRI 06/22/20 10:15 Completed Pending at discharge Category Date Time Status Complete Blood Co unt w/Auto Stat Lab 06/22/20 12:02 Results Comprehensive Met abolic Panel Routi ne Lab 06/22/20 12:02 Received Free T4 Free Thyr oxine Routine Lab 06/22/20 12:02 Received T3 Free Routine Lab 06/22/20 12:02 Received TIBC [Total Iron Binding Capacity] Routine Lab 06/22/20 12:02 Received Urine Culture Sta t Lab 06/21/20 21:40 Received CV echo complete* [id number] Routine Ultrasound 06/22/20 11:40 Ordered Labs from last 24 hours 06/22/20 06/22/20 06/22/20 06:15 02:34 02:34 WBC RBC Hgb Hct MCV MCH MCHC RDW Plt Count MPV Neut % (Auto) Lymph % (Auto) Stevens % (Auto) Eos % (Auto) Baso % (Auto) Neut # (Auto) Lymph # (Auto) Stevens # (Auto) Eos # (Auto) Baso # (Auto) Nucleated RBC % (a uto) Nucleated RBCs # Sodium Potassium Chloride Carbon Dioxide Anion Gap BUN Creatinine GFR Calculation Glucose POC Glucose 134 H Estimat Average Gl ucose Hemoglobin A1c Calculated Osmolal ity Lactate Calcium Iron TIBC % Saturation Unsat Iron Binding Total Bilirubin AST ALT Alkaline Phosphata se Troponin T Baselin e Troponin T 120 Min ak chin Delta Troponin T Troponin T Hi Sens 6Hr 15.35 H Troponin T Hi Sens 6Hr Delta 2.35 NT-Pro-B Natriuret Pep Total Protein Albumin Globulin Triglycerides Cholesterol LDL Cholesterol, C alc HDL Cholesterol LDL/HDL Ratio Cholesterol/HDL Ra ted Lipase TSH 8.47 H Free T4 Free T3 Urine Color Urine Appearance Urine pH Ur Specific Gravit y Urine Protein Urine Glucose (UA) Urine Ketones Urine Blood Urine Nitrate Urine Bilirubin Urine Urobilinogen Ur Leukocyte Natasha ase Urine RBC Urine WBC Ur Squamous Epith Cells Amorphous Sediment Urine Bacteria 06/22/20 06/22/20 06/21/20 00:01 00:01 23:10 WBC RBC Hgb Hct MCV MCH MCHC RDW Plt Count MPV Neut % (Auto) Lymph % (Auto) Stevens % (Auto) Eos % (Auto) Baso % (Auto) Neut # (Auto) Lymph # (Auto) Stevens # (Auto) Eos # (Auto) Baso # (Auto) Nucleated RBC % (a uto) Nucleated RBCs # Sodium Potassium Chloride Carbon Dioxide Anion Gap BUN Creatinine GFR Calculation Glucose POC Glucose Estimat Average Gl ucose 212 Hemoglobin A1c 9.0 H Calculated Osmolal ity Lactate Calcium Iron TIBC % Saturation Unsat Iron Binding Total Bilirubin AST ALT Alkaline Phosphata se Troponin T Baselin e Troponin T 120 Min ak chin 12.73 H Delta Troponin T -0.27 L Troponin T Hi Sens 6Hr Troponin T Hi Sens 6Hr Delta NT-Pro-B Natriuret Pep Total Protein Albumin Globulin Triglycerides 215 H Cholesterol 203 H LDL Cholesterol, C alc 105 HDL Cholesterol 55 L LDL/HDL Ratio 1.91 Cholesterol/HDL Ra ted 3.69 Lipase TSH Free T4 Free T3 Urine Color Urine Appearance Urine pH Ur Specific Gravit y Urine Protein Urine Glucose (UA) Urine Ketones Urine Blood Urine Nitrate Urine Bilirubin Urine Urobilinogen Ur Leukocyte Natasha ase Urine RBC Urine WBC Ur Squamous Epith Cells Amorphous Sediment Urine Bacteria 06/21/20 06/21/20 06/21/20 21:40 20:30 20:30 WBC RBC Hgb Hct MCV MCH MCHC RDW Plt Count MPV Neut % (Auto) Lymph % (Auto) Stevens % (Auto) Eos % (Auto) Baso % (Auto) Neut # (Auto) Lymph # (Auto) Stevens # (Auto) Eos # (Auto) Baso # (Auto) Nucleated RBC % (a uto) Nucleated RBCs # Sodium Potassium Chloride Carbon Dioxide Anion Gap BUN Creatinine GFR Calculation Glucose POC Glucose Estimat Average Gl ucose Hemoglobin A1c Calculated Osmolal ity Lactate 1.5 Calcium Iron TIBC % Saturation Unsat Iron Binding Total Bilirubin AST ALT Alkaline Phosphata se Troponin T Baselin e 13 H Troponin T 120 Min ak chin Delta Troponin T Troponin T Hi Sens 6Hr Troponin T Hi Sens 6Hr Delta NT-Pro-B Natriuret Pep Total Protein Albumin Globulin Triglycerides Cholesterol LDL Cholesterol, C alc HDL Cholesterol LDL/HDL Ratio Cholesterol/HDL Ra ted Lipase TSH Free T4 Free T3 Urine Color Yellow Urine Appearance Hazy A Urine pH 5 Ur Specific Gravit y 1.015 Urine Protein 1+ H Urine Glucose (UA) 4+ H Urine Ketones 1+ H Urine Blood Neg Urine Nitrate Negative Urine Bilirubin Neg Urine Urobilinogen Norm Ur Leukocyte Natasha ase 1+ H Urine RBC 0-4 H Urine WBC 25-40 H Ur Squamous Epith Cells 0-4 H Amorphous Sediment Not Reportable Urine Bacteria 1+ H 06/21/20 06/21/20 20:30 20:30 WBC 8.3 RBC 4.73 Hgb 14.6 Hct 44.7 MCV 94.5 MCH 30.9 MCHC 32.7 RDW 14.2 Plt Count 210 MPV 11.9 H Neut % (Auto) 65.8 Lymph % (Auto) 22.2 Stevens % (Auto) 9.4 Eos % (Auto) 1.2 Baso % (Auto) 1.0 Neut # (Auto) 5.44 Lymph # (Auto) 1.8 Stevens # (Auto) 0.8 Eos # (Auto) 0.1 Baso # (Auto) 0.1 Nucleated RBC % (a uto) 0 Nucleated RBCs # 0.0 Sodium 136 Potassium 4.4 Chloride 101 Carbon Dioxide 24 Anion Gap 15.4 BUN 32 H Creatinine 1.4 H GFR Calculation Not Reportable Glucose 136 H POC Glucose Estimat Average Gl ucose Hemoglobin A1c Calculated Osmolal ity 291 Lactate Calcium 8.9 Iron TIBC % Saturation Unsat Iron Binding Total Bilirubin 0.2 AST 19 ALT 18 Alkaline Phosphata se 79 Troponin T Baselin e Troponin T 120 Min ak chin Delta Troponin T Troponin T Hi Sens 6Hr Troponin T Hi Sens 6Hr Delta NT-Pro-B Natriuret Pep 345 Total Protein 6.7 Albumin 4.2 Globulin 2.5 Triglycerides Cholesterol LDL Cholesterol, C alc HDL Cholesterol LDL/HDL Ratio Cholesterol/HDL Ra ted Lipase 100 H TSH Free T4 Free T3 Urine Color Urine Appearance Urine pH Ur Specific Gravit y Urine Protein Urine Glucose (UA) Urine Ketones Urine Blood Urine Nitrate Urine Bilirubin Urine Urobilinogen Ur Leukocyte Natasha ase Urine RBC Urine WBC Ur Squamous Epith Cells Amorphous Sediment Urine Bacteria Addt'l Data from Hospital Stay: Laboratory Results WBC 8.3 10^3/uL (4.0- 10.0) 06/21/20 20:30 RBC 4.73 10^6/uL (4.1 -5.3) 06/21/20 20:30 Hgb 14.6 g/dL (11.5-1 5.3) 06/21/20 20:30 Hct 44.7 % (37.0-47.0 ) 06/21/20 20:30 MCV 94.5 fL (81-99) 06/21/20 20:30 MCH 30.9 pg (28.0-34. 0) 06/21/20 20:30 MCHC 32.7 g/dL (30.0-3 6.0) 06/21/20 20:30 RDW 14.2 % (12.1-15.1 ) 06/21/20 20:30 Plt Count 210 10^3/cmm (130 -400) 06/21/20 20:30 MPV 11.9 fL (7.4-10.4 ) H 06/21/20 20:30 Neut % (Auto) 65.8 % 06/21/20 20:30 Lymph % (Auto) 22.2 % 06/21/20 20:30 Stevens % (Auto) 9.4 % 06/21/20 20:30 Eos % (Auto) 1.2 % 06/21/20 20:30 Baso % (Auto) 1.0 % 06/21/20 20:30 Neut # (Auto) 5.44 10^3/uL (1.8 -7.7) 06/21/20 20:30 Lymph # (Auto) 1.8 10^3/uL (0.8- 4.8) 06/21/20 20:30 Stevens # (Auto) 0.8 10^3/uL (0.2- 0.9) 06/21/20 20:30 Eos # (Auto) 0.1 10^3/uL (0.0- 0.8) 06/21/20 20:30 Baso # (Auto) 0.1 10^3/uL (0.0- 0.1) 06/21/20 20:30 Nucleated RBC % (a uto) 0 % 06/21/20 20:30 Nucleated RBCs # 0.0 /100WBC 06/21/20 20:30 Sodium 136 mmol/L (136-1 45) 06/21/20 20:30 Potassium 4.4 mmol/L (3.5-5 .1) 06/21/20 20:30 Chloride 101 mmol/L (98-10 7) 06/21/20 20:30 Carbon Dioxide 24 mmol/L (22-29) 06/21/20 20:30 Anion Gap 15.4 (5-19) 06/21/20 20:30 BUN 32 mg/dL (8-23) H 06/21/20 20:30 Creatinine 1.4 mg/dL (0.5-0. 9) H 06/21/20 20:30 GFR Calculation Not Reportable 06/21/20 20:30 Glucose 136 mg/dL (65-115 ) H 06/21/20 20:30 POC Glucose 287 mg/dL (70-110 ) H 06/22/20 11:16 Estimat Average Gl ucose 212 06/22/20 00:01 Hemoglobin A1c 9.0 % (4.0-6.0) H 06/22/20 00:01 Calculated Osmolal ity 291 mOsm/kg (285- 295) 06/21/20 20:30 Lactate 1.5 mmol/L (0.5-2 .2) 06/21/20 20:30 Calcium 8.9 mg/dL (8.5-10 .5) 06/21/20 20:30 Total Bilirubin 0.2 mg/dL (0.15-1 .2) 06/21/20 20:30 AST 19 U/L (0-32) 06/21/20 20:30 ALT 18 U/L (0-33) 06/21/20 20:30 Alkaline Phosphata se 79 IU/L (35-105) 06/21/20 20:30 Troponin T Baselin e 13 ng/L (0-10) H 06/21/20 20:30 Troponin T 120 Min ak chin 12.73 ng/L (0-10) H 06/21/20 23:10 Delta Troponin T -0.27 ABS# (0-10) L 06/21/20 23:10 Troponin T Hi Sens 6Hr 15.35 ng/L (0-10) H 06/22/20 02:34 Troponin T Hi Sens 6Hr Delta 2.35 ng/L (0-12) 06/22/20 02:34 NT-Pro-B Natriuret Pep 345 pg/mL (0-450) 06/21/20 20:30 Total Protein 6.7 g/dL (6.6-8.7 ) 06/21/20 20:30 Albumin 4.2 g/dL (3.5-5.2 ) 06/21/20 20:30 Globulin 2.5 g/dL (1.3-4.6 ) 06/21/20 20:30 Triglycerides 215 mg/dL (0-150) H 06/22/20 00:01 Cholesterol 203 mg/dL (0-200) H 06/22/20 00:01 LDL Cholesterol, C alc 105 mg/dL (50-129 ) 06/22/20 00:01 HDL Cholesterol 55 mg/dL (60-100) L 06/22/20 00:01 LDL/HDL Ratio 1.91 RATIO (0.00- 3.22) 06/22/20 00:01 Cholesterol/HDL Ra ted 3.69 mg/dL (0.0-4 .40) 06/22/20 00:01 Lipase 100 U/L (13-60) H 06/21/20 20:30 TSH 8.47 uIU/mL (0.27 -4.20) H 06/22/20 02:34 Urine Color Yellow (Yellow) 06/21/20 21:40 Urine Appearance Hazy (CLEAR) A 06/21/20 21:40 Urine pH 5 (5-7) 06/21/20 21:40 Ur Specific Gravit y 1.015 (1.005-1.0 30) 06/21/20 21:40 Urine Protein 1+ (Negative) H 06/21/20 21:40 Urine Glucose (UA) 4+ (Normal) H 06/21/20 21:40 Urine Ketones 1+ (Negative) H 06/21/20 21:40 Urine Blood Neg (Negative) 06/21/20 21:40 Urine Nitrate Negative (Negati ve) 06/21/20 21:40 Urine Bilirubin Neg (Negative) 06/21/20 21:40 Urine Urobilinogen Norm mg/dL (Negat lobo) 06/21/20 21:40 Ur Leukocyte Natasha ase 1+ (Negative) H 06/21/20 21:40 Urine RBC 0-4 /hpf (0-2) H 06/21/20 21:40 Urine WBC 25-40 /hpf (0-5) H 06/21/20 21:40 Ur Squamous Epith Cells 0-4 /hpf (0-5) H 06/21/20 21:40 Amorphous Sediment Not Reportable 06/21/20 21:40 Urine Bacteria 1+ /hpf (NONE) H 06/21/20 21:40 Impressions Chest X-Ray 06/21/20 20:30 IMPRESSION: No focal acute pulmonary disease. Head CT 06/21/20 20:30 IMPRESSION: 1. No acute intracranial abnormality. 2. Small areas chronic ischemic brain change. Radiation Dose CTDIVOL = (mGy): DLP = 865.68 (mGy-cm) Head/Neck CTA 06/21/20 20:30 IMPRESSION: 1. Negative for vascular occlusion. 2. Less than 50% stenosis of the carotid arteries. REFERENCES: NASCET CRITERIA. The degree of internal carotid artery stenosis is based on NASCET criteria. Normal is no stenosis. Mild is less than 50% stenosis. Moderate is 50-69% stenosis. Severe is 70% to 99% stenosis. Total occlusion is no detectable patent lumen. Radiation Dose CTDIVOL = (mGy): DLP = 2421.75~2421.75 (mGy-cm) Head MRI 06/22/20 10:15 IMPRESSION: 1. No evidence for an acute hemorrhage or acute infarct. 2. Moderate bilateral nearly symmetric chronic microvascular ischemic disease with the prior RIGHT cerebellar infarct. Vitals: Last Vital Signs Temp 98.5 F 06/22/20 11:20 Pulse 64 06/22/20 11:20 Resp 17 06/22/20 11:20 BP 132/75 06/22/20 11:20 Pulse Ox 93 06/22/20 11:20 Discharge Plan Discharge Patient Disposition: Home Condition: Stable Prescriptions: Continued clopidogrel 75 mg tablet 75 mg PO DAILY RF: 0 levothyroxine 25 mcg tablet 25 mcg PO DAILY RF: 0 amlodipine 10 mg tablet 10 mg PO DAILY RF: 0 metoprolol tartrate 50 mg tablet 50 mg PO BID RF: 0 raloxifene 60 mg tablet 60 mg PO DAILY RF: 0 Novolog Mix 70-30 U-100 Insuln 100 unit/mL (70-30) solution See Rx Instructions .ROUTE .COMPLEX RF: 0 Jardiance 10 mg tablet 10 mg PO DAILY RF: 0 aspirin 325 mg Tablet 325 mg PO DAILY RF: 0 levothyroxine 100 mcg Tablet 100 mcg PO DAILY RF: 0 Changed losartan 25 mg tablet 25 mg PO QAM Qty: 30 RF: 0 atorvastatin 40 mg tablet 80 mg PO BEDTIME Qty: 30 RF: 0 Discontinued hydralazine 25 mg tablet 25 mg PO TID RF: 0 Discharge Orders: Discharge Order (Routine); Ordered 06/22/20 Ordered By: Jad Renteria Referrals: Karan Staples DO [Primary Care Provider] - Patient Instructions: Opioid Safety Discharge Attestations Time Spent in Discharge Care*: greater than 30 min Specific Discharge Activities: educating patient, educating and/or supporting family/caregiver, discussing with pcp/other providers, discussing with caseworker/social workers/dc planners and evaluating patient/reviewing data Status at Discharge: Cognitive status at discharge: cognitively intact, Behavioral status at discharge: cooperative, Functional status at discharge: independent ambulation Overall status at discharge: patient is back to baseline Quality Metrics Clinical Quality Measures During this hospital stay, did patient experience: None Coding Level of Care Code Acute Chg FW DC note Diagnoses Dizziness R42 Vomiting R11.10 Tinnitus H93.19 Diabetes E11.9 Hypertension I10
[2020-06-22 12:52] LABS: Albumin Level 3.2 g/dL (3.5-5.2); Alkaline Phosphatase 63 IU/L (35-105); Anion Gap 16.6 (5-19); Blood Urea Nitrogen 25 mg/dL (8-23); Calcium 8.3 mg/dL (8.5-10.5); Carbon Dioxide 20 mmol/L (22-29); Chloride 102 mmol/L (98-107); Globulin 2.8 g/dL (1.3-4.6); Glucose 303 mg/dL (65-115); Iron 65 ug/dL (37-145); Osmolality Calculated 294 mOsm/kg (285-295); Percent Saturation 23.3 % (20-50); Potassium 4.6 mmol/L (3.5-5.1); Sodium 134 mmol/L (136-145); Total Bilirubin 0.3 mg/dL (0.15-1.2); Total Iron Binding Capacity 278 mcg/dl; Unsaturated Iron Binding 213 ug/dL (112-347)
[2020-06-22 12:53] LABS: Alanine Aminotransferase 16 U/L (0-33); Aspartate Amino Transferase 19 U/L (0-32)
[2020-06-22 13:17] LABS: Free T4 Free Thyroxine 1.27 ng/dL (0.82-1.77)
--- NOTE | 2020-06-22 13:22 | PC.CHAP ---
Pastoral Care Encounter/Spiritual Assessment Type of Contact [] Declined systems design engineer visit [] Patient/Family/Request visit [] Outpatient visit [] Follow-up visit [] Physician referral [] Code/Alert [xx] Routine visit [] Staff referral [] Actively dying [] Patient sleeping [] Family support [] [] Out of room [] Palliative care [] [] Receiving care in room [] Pre-surgical visit [] Trauma [] Long length of stay [] ICU visit [] Other: Relational/Emotional Strength [xx] Patient feels connected with others/family/visitors/staff [] Distress [] Loneliness/isolation [] Abandonment Spirituality of Patient [xx] Person of Erma [] Attends Faith of their Erma [xx] Believes in Prayer [xx] Reads Bible or Restorationist materials [] There are Spiritual issues to be addressed Gas Pumper Interventions [xx] Prayer [xx] Active listening [xx] Non-anxious presence [] Spiritual/emotional support [] Crisis/trauma care [] Spiritual counseling [] Bereavement support [] Provided bereavement packet [xx] Provided Bible/devotional materials [] Provided toy/stuffed animal, coloring book to patient or family member [] Provided Communion [] Anointing/[place] [] Salvation [xx] Completed spiritual assessment [] Other: Impact on Illness or Injury [] Angry [] Fearful [] Anxious [] Often cries [] Exhaustion [] Unable to work [] Unable to attend alevism [] Unable to walk/stand [] Unable to read [] Unable to drive [] Unable to eat/drink [] Unable to sleep [] Unable to be with family [] Patient intubated [] Other: Summary Patient was in good mood, smiling and laughing. She expects further testing and thinks she will be released some time over weekend. She has no specific plans for Mother's Day. Patient has 8 cats at home and she is concerned about their welfare while she is in hospital. She shared phone photos of her cats with systems design engineer. Gas Pumper has cats so this was major topic of conversation for both. Time spent with patient 12 minutes
[2020-06-22 13:28] LABS: T3 Free 1.8 PG/ML (2.0-4.4)
== END 2020-06-22 14:28 | disposition home or self-care (01) ==
LOC: ER 06-22 00:35 → MEDSURG 06-22 01:34
PROVIDERS: Admitting Provider Internal Medicine; Emergency Provider Family Medicine; PCP Family Medicine; Visit Provider Student in an Organized Health Care Education/Training Program
DX: R42 Dizziness and giddiness (principal); R11.10 Vomiting, unspecified; H93.19 Tinnitus, unspecified ear; I10 Essential (primary) hypertension; E08.39 Diabetes mellitus due to underlying condition with other diabetic ophthalmic complication; Z86.73 Personal history of transient ischemic attack (TIA), and cerebral infarction without residual deficits; M81.0 Age-related osteoporosis without current pathological fracture; E78.5 Hyperlipidemia, unspecified; E03.9 Hypothyroidism, unspecified; M19.90 Unspecified osteoarthritis, unspecified site
CPT/HCPCS: 36415; 36416; 70450; 70496; 70498; 70551; 71045; 80053; 80061; 81001; 82962; 83036; 83540; 83550; 83605; 83690; 83880; 84439; 84443; 84481; 84484; 85025; 87086; 93005; 96361; 96372; 96374; 96375; G0378; J1650; J1815; J2765; J7030; Q9967

== ENCOUNTER → 2021-06-20 13:27 | Outpatient (BNVA) | payer MEDICARE, OTHER, SELFPAY | PROVIDERS: PCP Family Medicine; Visit Provider Nurse Practitioner Gerontology | DX: N18.30 Chronic kidney disease, stage 3 unspecified (principal); R80.0 Isolated proteinuria; E05.90 Thyrotoxicosis, unspecified without thyrotoxic crisis or storm; E55.9 Vitamin D deficiency, unspecified; N28.9 Disorder of kidney and ureter, unspecified; E87.1 Hypo-osmolality and hyponatremia; E78.5 Hyperlipidemia, unspecified; I12.9 Hypertensive chronic kidney disease with stage 1 through stage 4 chronic kidney disease, or unspecified chronic kidney disease; E11.22 Type 2 diabetes mellitus with diabetic chronic kidney disease | CPT/HCPCS: 80048; 81003; 82040; 82310; 82575; 82607; 83735; 83970; 84100; 84156; 84443; 84550; 87086 ==

== ENCOUNTER → 2021-12-23 15:12 | Outpatient (BNVA) | payer MEDICARE, OTHER, SELFPAY | PROVIDERS: PCP Family Medicine; Visit Provider Family Medicine | DX: I10 Essential (primary) hypertension (principal); N18.30 Chronic kidney disease, stage 3 unspecified; E55.9 Vitamin D deficiency, unspecified; E11.9 Type 2 diabetes mellitus without complications; N28.9 Disorder of kidney and ureter, unspecified; R42 Dizziness and giddiness | CPT/HCPCS: 80048; 80053; 80061; 82040; 82310; 82570; 82607; 82652; 83036; 83735; 83970; 84100; 84156 ==

== ENCOUNTER → 2021-12-24 15:04 | Outpatient (BNVA) | payer MEDICARE, OTHER, SELFPAY | PROVIDERS: PCP Family Medicine; Visit Provider Family Medicine | DX: N18.32 Chronic kidney disease, stage 3b (principal); E55.9 Vitamin D deficiency, unspecified; E11.22 Type 2 diabetes mellitus with diabetic chronic kidney disease; I12.9 Hypertensive chronic kidney disease with stage 1 through stage 4 chronic kidney disease, or unspecified chronic kidney disease; R42 Dizziness and giddiness; N28.9 Disorder of kidney and ureter, unspecified | CPT/HCPCS: 81000; 82043; 82306; 87086 ==

== ENCOUNTER → 2022-01-20 15:36 | Outpatient (BNVA) | payer MEDICARE, OTHER, SELFPAY | PROVIDERS: PCP Family Medicine; Visit Provider Family Medicine | DX: E11.9 Type 2 diabetes mellitus without complications (principal); E78.5 Hyperlipidemia, unspecified; I10 Essential (primary) hypertension; N28.9 Disorder of kidney and ureter, unspecified; R11.10 Vomiting, unspecified; R42 Dizziness and giddiness | CPT/HCPCS: 80048; 82652; 83036 ==

== ENCOUNTER 2022-02-25 13:48 | Inpatient (IN) | payer MEDICARE, OTHER, SELFPAY ==
[2022-02-25] VITALS (59 sets, daily range): BP systolic 126–195; BP diastolic 46–129; PULSE 61–79; RESP 12–26; TEMP 36.8–37.6; O2SAT 88–98; BMI 38.7
--- NOTE | 2022-02-25 13:56 | CT_ITS ---
WS: [id number] CT HEAD TECHNIQUE: Noncontrast CT of the head obtained from the skullbase to the vertex. CLINICAL INFORMATION: AMS, WEAKNESS, COMPARISON: MRI 07/06 DLP: [address] scans at [facility] use at least one of these dose optimization techniques: automated e xposure control; mA and/or kV adjustment per patient size (includes targeted exams where dose is matc hed to clinical indication); or iterative reconstruction. FINDINGS: No evidence of intracranial hemorrhage or mass effect. Ventricular system and basal cisterns are mackey nt. Moderate small vessel changes with moderate parenchymal volume loss. Chronic infarcts RIGHT cereb ellum. Intracranial vascular calcification. No extra-axial fluid collections. No evidence of mass or mass effect. Paranasal sinuses and mastoid air cells are well aerated. .Normal visualized soft tissues. CT/CT head thrombolytic [id number] IMPRESSION: 1. No evidence of intracranial hemorrhage or mass effect. 2. Moderate small vessel changes. Moderate parenchymal volume loss. 3. Chronic infarcts in the RIGHT cerebellum. 4. Intracranial vascular calcification. 5. No acute intracranial findings. Notified Chris Qiu DO at 02/25/2022 2:13 PM.
--- NOTE | 2022-02-25 14:07 | XRR_ITS ---
PROCEDURE INFORMATION: Exam: XR Chest Exam date and time: 02/25/2022 4:03 PM Age: 76 years old Clinical indication: Other: CVA TECHNIQUE: Imaging protocol: Radiologic exam of the chest. Views: 1 view. COMPARISON: CR XR chest 1V portable [id number] 06/21/2020 8:56 PM FINDINGS: Lungs: Unremarkable. No consolidation. Pleural spaces: Unremarkable. No pleural effusion. No pneumothorax. Heart/Mediastinum: Cardiac silhouette is mildly enlarged. Bones/joints: Unremarkable. XR/XR chest 1V portable [id number] IMPRESSION: Mild cardiomegaly otherwise negative chest.
--- NOTE | 2022-02-25 14:07 | W.ED.AMS ---
HPI - Altered Mental Status General: Chief Complaint: Altered Mental Status Stated Complaint: AMS Time Seen by Provider: 02/25/22 14:07 [facility] ED PFSH: Medical History (Updated 11/05/21 @ 11:57 by Karan Staples DO) Cerebellar stroke Diabetes DJD (degenerative joint disease) Dyslipidemia Hypertension Hypothyroid Osteoporosis Surgical History H/O arthroscopy Family History Other CAD (coronary artery disease) Cancer Diabetes Hypertension Social History Smoking and tobacco status: never smoked Alcohol intake: never Lives independently: Yes Housing: House Course Vital Signs: Vital signs: Vital Signs Temperature 98.2 F 02/25/22 13:56 Pulse Rate 69 02/25/22 13:56 Respiratory Rate 20 H 02/25/22 13:56 Blood Pressure 188/129 02/25/22 13:56 Pulse Oximetry 92 02/25/22 13:56 Oxygen Delivery Me thod 02/25/22 13:56 Discharge Plan Discharge Condition: Stable Prescriptions: No Action levothyroxine 200 mcg tablet 200 mcg PO DAILY Rx Instructions: take with levothyroxine 25mcg losartan 25 mg tablet 25 mg PO DAILY Levemir U-100 Insulin 100 unit/mL solution 15 unit SUBCUT BID cholecalciferol (vitamin D3) 25 mcg (1,000 unit) tablet PO levothyroxine 25 mcg tablet 25 mcg PO DAILY Qty: 90 1RF Rx Instructions: w/100 mcg daily clopidogrel 75 mg tablet 75 mg PO DAILY Qty: 30 1RF atorvastatin 40 mg tablet 40 mg PO BEDTIME Qty: 30 0RF (DME) insulin syringe-needle U-100 [[employer] Syringes] 0.5 mL 31 gauge x 5/16 syringe See Rx Instructions .Route Qty: 100 11RF Rx Instructions: As directed, inject insulin 3 times a day. amlodipine 10 mg tablet 10 mg PO DAILY metoprolol tartrate 50 mg tablet 50 mg PO BID raloxifene 60 mg tablet 60 mg PO DAILY Jardiance 10 mg tablet 10 mg PO DAILY aspirin 325 mg Tablet 325 mg PO DAILY levothyroxine 100 mcg Tablet 100 mcg PO DAILY Rx Instructions: w/25 mcg daily losartan 50 mg Tablet 25 mg PO DAILY Qty: 30 0RF Novolog Mix 70-30 U-100 Insuln 100 unit/mL (70-30) solution See Rx Instructions .ROUTE .COMPLEX Qty: 10 0RF Rx Instructions: 30 to 50 units in the morning as per the blood sugar levels and 40 units in the evening Referrals: Karan Staples DO [Primary Care Provider] - Coding Level of Care Code ED Global Clinical Leader for Chg Rosalind
--- NOTE | 2022-02-25 14:12 | ECG_ITS ---
[facility] Test Date: 2022-02-25 Pat Name: Michelle Lutz Department: Room: Gender: Female Airport Clerk: : 1945 Requested By: Mc Aguilera Order Number: [id number] Dina MD: Josh Villanueva M.D. Measurements Intervals [place] Rate: 62 P: 55 AK: 188 QRS: 3 QRSD: 122 T: -2 QT: 444 QTc: 453 Interpretive Statements SINUS RHYTHM MODERATE VOLTAGE CRITERIA FOR LVH, CONSIDER NORMAL VARIANT [MEETS CRITERIA IN ONE OF: R(aVL), S(V1), R(V5), R(V5/V6)+S(V1)] POSSIBLE SEPTAL MYOCARDIAL INFARCTION , OF INDETERMINATE AGE [30 ms Q WAVE IN V1/V2] Compared to ECG 06/21/2020 22:38:56 Myocardial infarct finding now present Intraventricular conduction delay no longer present Electronically Signed On 02-25-2022 17:24:49 MEMBER SERVICES REPRESENTATIVE by Josh Villanueva M.D. [id number]
--- NOTE | 2022-02-25 14:13 | W.ED.NEUROSD ---
HPI - Neuro Symptoms/Deficit General: Chief Complaint: Altered Mental Status Stated Complaint: AMS Time Seen by Provider: 02/25/22 14:07 Source: EMS Mode of arrival: EMS Limitations: other (Dysarthria) History of Present Illness: This history is obtained via EMS as the patient's dysarthria prevents effective communication. Allegedly the patient was in the ophthalmology office and at approximately 1 PM today she developed garbled unintelligible speech. EMS was notified and transported to our emergency department. There is no other historian available at this time. Location: speech and dysarthria Severity: severe Quality: constant Review of Systems General: Reports: ROS unobtainable due to medical condition PFS ED PFSH: Medical History Cerebellar stroke Diabetes DJD (degenerative joint disease) Dyslipidemia Hypertension Hypothyroid Osteoporosis Surgical History H/O arthroscopy Family History Other CAD (coronary artery disease) Cancer Diabetes Hypertension Social History Smoking and tobacco status: never smoked Alcohol intake: never Lives independently: Yes Housing: House NIH stroke score NIHSS: Level Of Consciousness - 1a: 0 Level Of Consciousness Questions - 1b: Both Correct Level Of Consciousness Commands - 1c: Both Correct Best Gaze - 2: Normal Visual Proctor - 3: No Visual Loss Facial Palsy - 4: Normal Motor Arm Right - 5: No Drift Motor Arm Left - 5: No Drift Motor Leg Right - 6: Effort Against [place] Motor Leg Left - 6: No Drift Limb Ataxia - 7: Absent Sensory - 8: Normal Best Language - 9: Severe Aphasia Dysarthia - 10: Severe Dysarthia Extinction And Inattention - 11: 0 Score: Total Score: 6 Physical Exam Narrative: EXAM NARRATIVE: The patient is alert. He appears to be anxious. Speech is dysarthric and mostly unintelligible. Const: COMMON NORMALS: alert GENERAL APPEARANCE: anxious NUTRITIONAL APPEARANCE: overweight ORIENTATION/CONSCIOUSNESS: Yes awake HENMT: COMMON NORMALS: normocephalic, atraumatic, Normal nasal mucous membranes and turbinates present, moist oral mucous membranes and oropharynx normal HEAD & SCALP: normocephalic and atraumatic NOSE: Normal nasal mucous membranes and turbinates present Eye: COMMON NORMALS: Equal, round and reactive pupils present (Right pupil is dilated per ophthalmology), EOMs intact bilaterally and conjunctivae normal CONJUNCTIVA: Yes conjunctivae normal PUPIL: Yes Equal, round and reactive pupils present (Right pupil is dilated per ophthalmology) Neck/C-Spine: COMMON NORMALS: full ROM, supple and No carotid bruits Chest: COMMONS NORMALS: normal inspection of the chest and normal palpation of entire chest wall Resp: COMMON NORMALS: normal respiratory effort and clear to auscultation bilaterally AUSCULTATION: clear to auscultation bilaterally Cardio: COMMON NORMALS: regular rate, regular rhythm, No murmurs present (Cardio) and Peripheral pulses 2+ throughout RATE: regular rate RHYTHM: regular rhythm PERIPHERAL PULSES: Peripheral pulses 2+ throughout GI: COMMON NORMALS: Normal to inspection, nondistended, normoactive bowel sounds present, Soft to palpation and non-tender PALPATION: Yes Soft to palpation : COMMON NORMALS: Yes no CVA tenderness BLADDER/KIDNEY EXAM: Yes no CVA tenderness Back/Pelvis: COMMON NORMALS: no CVA tenderness, no thoracic nor lumbar tenderness and straight leg raise negative bilaterally Extremity: COMMON NORMALS: capillary refill normal, no calf tenderness and no pedal edema Neuro: SENSORIUM/ORIENTATION: Yes alert SPEECH: abnormal speech and expressive aphasia MOTOR EXAM: no tremor noted and Abnormal motor strength present Course Reevaluation(s): Reevaluation #1: Neurology design studio consultant is in the emergency department and recommends tPA infusion. She reported to me that she had reviewed the risks and benefits with the patient's son who is a RN he had given authorization for tPA administration. Time: 14:18 Reevaluation #2: I returned back to the examination room and the patient had elevation in systolic blood pressure over the excepted high limit for tPA administration and the patient was administered labetalol which brought her systolic pressure down to 175 and tPA was administered. Time: 14:30 Reevaluation #3: Pressure is somewhat labile and despite this local protocol recommending labetalol I have made a decision to place the patient on a nicardipine drip as allows more ease of titration to blood pressure control. Time: 14:36 Additional Reevaluation(s): Patient is reevaluated. She is fully lucid and able to converse in normal voice without any evidence of dysarthria. She has no discernible weakness of her right lower extremity at this time. Her pressure is remained in the 140s systolic without any intervention other than the initial labetalol. Vital Signs: Vital signs: Vital Signs Temperature 98.2 F 02/25/22 13:56 Pulse Rate 66 02/25/22 16:15 Respiratory Rate 21 H 02/25/22 16:15 Blood Pressure 154/98 02/25/22 16:15 Pulse Oximetry 90 02/25/22 16:15 Oxygen Delivery Me thod 02/25/22 15:01 MDM - Neuro Symptoms/Deficit Medical Decision Making This patient was transported from a local control room supervisor office with a time 0 of approximately 1 PM. She arrived with profound dysarthria and focal extremity weakness with an NIH of 6. Immediately stroke protocol was initiated. Neurologist was consulted. Noncontrast CT scan was obtained which revealed no evidence of hemorrhage. After review of current findings risks and benefits by the attending neurologist with the patient's son agreed to thrombolytic therapy tPA was begun. She requires initial blood pressure control but blood pressure remained controlled after initial dose of labetalol. Continued observation and reevaluation in the emergency department revealed her to improve with ability to speak in a fluent fashion and ability to move all extremities. No evidence of untoward effects at this point in time and she is improved and stable. She will be admitted to the intensive care unit for further monitoring, evaluation and treatment. Medical Records I reviewed the patient's medical records. Lab Data I reviewed the patient's lab results. 02/25/22 14:34 02/25/22 14:[address] 02/25/22 13:56 IMPRESSION: 1. No evidence of intracranial hemorrhage or mass effect. 2. Moderate small vessel changes. Moderate parenchymal volume loss. 3. Chronic infarcts in the RIGHT cerebellum. 4. Intracranial vascular calcification. 5. No acute intracranial findings. Notified Chris Qiu DO at 02/25/2022 2:13 PM. Laboratory Results WBC 7.5 10^3/uL (4.0-10.0) 02/25/22 14:34 RBC 4.56 10^6/uL (4.1-5.3) 02/25/22 14:34 Hgb 14.1 g/dL (11.5-15.3) 02/25/22 14:34 Hct 43.2 % (37.0-47.0) 02/25/22 14:34 MCV 94.7 fl (81-99) 02/25/22 14:34 MCH 30.9 pg (28.0-34.0) 02/25/22 14:34 MCHC 32.6 g/dL (30.0-36.0) 02/25/22 14:34 RDW 13.3 % (12.1-15.1) 02/25/22 14:34 Plt Count 248 10^3/cmm (130-400) 02/25/22 14:34 MPV 11.5 fL (7.4-10.4) H 02/25/22 14:34 Neut % (Auto) 75.2 % 02/25/22 14:34 Lymph % (Auto) 13.4 % 02/25/22 14:34 Drew % (Auto) 8.9 % 02/25/22 14:34 Eos % (Auto) 1.3 % 02/25/22 14:34 Baso % (Auto) 1.1 % 02/25/22 14:34 Neut # (Auto) 5.66 10^3/uL (1.8-7.7) 02/25/22 14:34 Lymph # (Auto) 1.0 10^3/uL (0.8-4.8) 02/25/22 14:34 Drew # (Auto) 0.7 10^3/uL (0.2-0.9) 02/25/22 14:34 Eos # (Auto) 0.1 10^3/uL (0.0-0.8) 02/25/22 14:34 Baso # (Auto) 0.1 10^3/uL (0.0-0.1) 02/25/22 14:34 Nucleated RBC % (auto) 0 % 02/25/22 14:34 Nucleated RBCs # 0.0 /100WBC 02/25/22 14:34 PT 13.20 SECONDS (12.1-14.9) 02/25/22 14:34 INR 0.97 (0.8-1.2) 02/25/22 14:34 APTT 21.4 SECONDS (23.9-36.7) L 02/25/22 14:34 Sodium 136 mmol/L (136-145) 02/25/22 14:34 Potassium 4.5 mmol/L (3.5-5.1) 02/25/22 14:34 Chloride 97 mmol/L (98-107) L 02/25/22 14:34 Carbon Dioxide 28 mmol/L (22-29) 02/25/22 14:34 Anion Gap 15.5 (5-19) 02/25/22 14:34 BUN 31 mg/dL (8-23) H 02/25/22 14:34 Creatinine 1.8 mg/dL (0.5-0.9) H 02/25/22 14:34 GFR Calculation Not Reportable 02/25/22 14:34 Glucose 159 mg/dL (65-115) H 02/25/22 14:34 Calculated Osmolality 292 mOsm/kg (285-295) 02/25/22 14:34 Calcium 10.4 mg/dL (8.5-10.5) 02/25/22 14:34 Total Bilirubin 0.3 mg/dL (0.15-1.2) 02/25/22 14:34 AST 23 U/L (0-32) 02/25/22 14:34 ALT 20 U/L (0-33) 02/25/22 14:34 Alkaline Phosphatase 86 U/L (35-105) 02/25/22 14:34 Total Protein 6.9 g/dL (6.6-8.7) 02/25/22 14:34 Albumin 3.7 g/dL (3.5-5.2) 02/25/22 14:34 Globulin 3.2 g/dL (1.3-4.6) 02/25/22 14:34 EKG Data EKG 1: I personally reviewed and interpreted this EKG as follows: Interpretation: Resting EKG reveals a sinus rhythm of 62 bpm. Normal ID interval, QRS duration, QTc interval. Normal. She has findings suggestive of sinus rhythm. She does have findings suggestive of possible remote anterior septal FL but no acute ST-T wave changes noted at this time. Critical Care Time Critical Care Time: Critical Care Time: Yes Total Critical Care Time: 35 Attestation: Critical care time included evaluating patient, discussing with consultants, monitoring blood pressure, intravenous thrombolytic therapy, reevaluation the patient, reviewing studies and tests Discharge Plan Discharge Patient Disposition: Admitted As Inpatient Clinical Impression: Non-hemorrhagic stroke, Hypertension Condition: Stable Prescriptions: No Action levothyroxine 200 mcg tablet 200 mcg PO DAILY Rx Instructions: take with levothyroxine 25mcg cholecalciferol (vitamin D3) 25 mcg (1,000 unit) tablet 25 mcg PO DAILY levothyroxine 25 mcg tablet 25 mcg PO DAILY Qty: 90 1RF Rx Instructions: with 200mcg to =225mcg clopidogrel 75 mg tablet 75 mg PO DAILY Qty: 30 1RF atorvastatin 40 mg tablet 40 mg PO BEDTIME Qty: 30 0RF (DME) insulin syringe-needle U-100 [[facility] Syringes] 0.5 mL 31 gauge x 5/16 syringe See Rx Instructions .Route Qty: 100 11RF Rx Instructions: As directed, inject insulin 3 times a day. amlodipine 10 mg tablet 10 mg PO DAILY metoprolol tartrate 50 mg tablet 50 mg PO BID insulin asp prt-insulin aspart [Novolog Mix 70-30 U-100 Insuln] 100 unit/mL (70-30) solution See Rx Instructions .ROUTE .COMPLEX Qty: 10 0RF Rx Instructions: 50 units qam and 30 units qpm (max daily dose of 100 units per daily) plus sliding scale loratadine 10 mg tablet 10 mg PO DAILY losartan 50 mg tablet 50 mg PO DAILY Aspir-81 81 mg Tablet,Delayed Release (Dr/Ec) 81 mg PO DAILY Referrals: Karan Staples DO [Primary Care Provider] - Coding Level of Care Code ED Scrap Hooker for Chg Fwd Exam Comprehensive
[2022-02-25] MEDS: labetalol 5 mg/mL SDV 20mL 10 MG IVP ×2 (14:27→21:04)
--- NOTE | 2022-02-25 14:39 | PM.SAN ---
Stroke Alert Activation ED Arrival Date: 02/25/22 ED Arrival Time: 13:56 Other Last Known Well Infomation: I was called for stroke team at 1404. The patient arrived here at 1356 and stroke team was not reactivated. Dr. Aguilera walked into the room and discovered that the patient had a deficit. He activated the stroke team. By the time stroke alert was called she had already had her CT of the head and I stopped and reviewed the images on the monitor on my way to the ER. She had an old lacunar left internal capsule and no acute changes, no hemorrhage. I came to the bedside and talked with Dr. Aguilera briefly on my way, asking him to make sure that tPA was ordered and the nurses were getting it. I came to the patient's bedside where the nurse was attempting to start another IV for CT angiogram. I asked the nurse to change focus to make sure we were giving tPA as soon as possible. The patient had right hemiparesis and receptive and expressive aphasia on exam. I followed the nurse to make sure labetalol was also being ordered because the blood pressure was 205/130. The nurse calculated the tPA dosage including waste and bolus and reviewed that with me. The patient received labetalol 10 mg IV and the blood pressure rapidly fell to 185/105. The bolus was given at 1430. The patient was at Dr. Gaston office and had pupillary dilation on the right. She was last known normal at 1:00 this afternoon and was discovered to have right hemiparesis and aphasia. I think she was brought by ambulance, Dr. Aguilera was not sure, but stroke team was not pretty activated as far as I know Stroke Alert Activated by: Dr. Aguilera Stroke Alert Activation Time: 14:04 Stroke MD @ Bedside Date: 02/25/22 Stroke MD @ Bedside Time: 14:10 NIH Stroke Scale Time: 14:10 NIH stroke score NIHSS: Level Of Consciousness - 1a: 1 Level Of Consciousness Questions - 1b: One Correct Level Of Consciousness Commands - 1c: One Correct Best Gaze - 2: Normal Visual Proctor - 3: Partial Hemianopia Facial Palsy - 4: Minor Paralysis Motor Arm Right - 5: Effort Against [place] Motor Arm Left - 5: No Drift Motor Leg Right - 6: Effort Against [place] Motor Leg Left - 6: No Drift Limb Ataxia - 7: Absent Sensory - 8: Mild To Moderate Loss Best Language - 9: Mild/Moderate Aphasia (She follows simple but not complex commands. She could tell me her age. At 1 point she knew the month. She could say her son's name. Her speech mainly consisted of garbled word salad) Dysarthia - 10: Mild/Moderate Dysarthia Extinction And Inattention - 11: 0 Score: Total Score: 12 Stroke Alert Data/Treatment CT Results Time: 14:13 CT Impression: 1.? No evidence of intracranial hemorrhage or mass effect. 2.? Moderate small vessel changes. Moderate parenchymal volume loss. 3.? Chronic infarcts in the RIGHT cerebellum. 4.? Intracranial vascular calcification. 5.? No acute intracranial findings. ? ? Notified Chris Qiu, DO at 02/25/2022 2:13 PM. ? ? Signed By: Ravinder Oreilly MD Signed Date/Time: 02/25/22 Stroke Risk Factors: obesity and diabetes mellitus tPA Started Date: 02/25/22 tPA Started Time: tPA Started - Time: 14:30 tPA Admin Prior to Arrival: No Patient & Family Educated on: Treament Plan and tPA Risks/Benefits Other Patient & Family Education: Her son is a nurse in [place] and indicated that he is familiar with these types of events that she has had multiple times. Standardized Stroke Orders Used: Yes Other Information: Stat CTA because of high NIH stroke scale score Critical Care Time Critical Care Time: 30 - 74 mins Additional information about critical care time: 40 minutes A&P Assessment and plan (1) Left acute arterial ischemic stroke, MCA (middle cerebral artery): The patient presents with right hemiparesis and mixed receptive and expressive aphasia consistent with left middle cerebral artery stroke. She has received a bolus of tPA after her blood pressure came down with labetalol and CT of the head was negative and blood sugar tracer did not show hypoglycemia. I remained at the patient's bedside and talked with her son and made sure that the bolus was given. I talked with Dr. Aguilera and we work together to get the patient treated as quickly as possible. (2) Diabetes: (3) Hypertension: (4) Vomiting: Coding Level of Care Code Acute Senior Network Architect for [facility] Fwd Diagnoses Left acute arterial ischemic stroke, MCA (middle cerebral artery) I63.512 Diabetes E11.9 Hypertension I10 Vomiting R11.10
[2022-02-25 14:46] LABS: Basophils # 0.1 10^3/uL (0.0-0.1); Basophils % 1.1 %; Eosinophils # 0.1 10^3/uL (0.0-0.8); Eosinophils % 1.3 %; Hematocrit 43.2 % (37.0-47.0); Hemoglobin 14.1 g/dL (11.5-15.3); Lymphocytes % 13.4 %; Mean Corpuscular HGB Conc 32.6 g/dL (30.0-36.0); Mean Corpuscular Hemoglobin 30.9 pg (28.0-34.0); Mean Corpuscular Volume 94.7 fl (81-99); Mean Platelet Volume 11.5 fL (7.4-10.4); Monocytes # 0.7 10^3/uL (0.2-0.9); Monocytes % 8.9 %; Neutrophils # 5.66 10^3/uL (1.8-7.7); Neutrophils % 75.2 %; Nucleated Red Blood Cells % 0 %; Platelet Count 248 10^3/cmm (130-400); Red Blood Count 4.56 10^6/uL (4.1-5.3); Red Cell Distribution Width 13.3 % (12.1-15.1); White Blood Count 7.5 10^3/uL (4.0-10.0)
[2022-02-25 14:57] LABS: INR 0.97 (0.8-1.2); Partial Thromboplastin Time 21.4 SECONDS (23.9-36.7)
[2022-02-25 15:05] LABS: Alanine Aminotransferase 20 U/L (0-33); Albumin Level 3.7 g/dL (3.5-5.2); Alkaline Phosphatase 86 U/L (35-105); Blood Urea Nitrogen 31 mg/dL (8-23); Calcium 10.4 mg/dL (8.5-10.5); Carbon Dioxide 28 mmol/L (22-29); Chloride 97 mmol/L (98-107); Globulin 3.2 g/dL (1.3-4.6); Glucose 159 mg/dL (65-115); Osmolality Calculated 292 mOsm/kg (285-295); Sodium 136 mmol/L (136-145); Total Bilirubin 0.3 mg/dL (0.15-1.2); Total Protein 6.9 g/dL (6.6-8.7)
[2022-02-25 15:14] LABS: Anion Gap 15.5 (5-19); Aspartate Amino Transferase 23 U/L (0-32); Potassium 4.5 mmol/L (3.5-5.1)
[2022-02-25] MEDS: ondansetron 2 mg/ML SDV 2 mL 4 MG IVP ×2 (15:40→19:25)
--- NOTE | 2022-02-25 15:45 | PC.NURSE ---
9 mg TPA bolus given at 1430 infusion started at 1431
--- NOTE | 2022-02-25 15:53 | PC.PHAR ---
pt unable to verify medications when first arriving-called pts pharmacy [facility] to verify when medications last filled and verified some medications with yvon from [facility]-waiting for med list from office [phone]-pts son states the pt has a med list in a red metal thing in her purse pt didnt have a purse in room with her-went back and talked to pt again pt states she cant remember all the names of her meds but states she takes vitamin d3 daily-aspirin 81mg daily-pt states she only has one kind of insulin pt states only has novolog mix 70/30 filled 02/02/22 50 units qam and 30 units qpm plus sliding scale max 100 units per day-yvon from [facility] states they havent refilled jardiance 10mg daily since may 2020-jake states evista 60mg daily dced from in january states last filled 11/04/21 90d/s-[facility]previous entered med list and what the pt states she can remember that she takes-notes are made in the pharmacy comments
--- NOTE | 2022-02-25 17:45 | P.HP_ITS ---
Providers/Chief Complaint Admitting Physician: Jad Renteria MD Primary Care Provider: Karan Staples DO Chief Complaint: AMS History of Present Illness Michelle Lutz is a 76 year old female with past medical history of type 2 diabetes mellitus, CKD with baseline creatinine of 1.4-1.7, multiple TIAs and stroke in the past, hypertension, right eye macular degeneration. Patient was at ophthalmology office today for examination of right eye. Right eye was dilated and as she was coming out to make appointments she got confused with what seems to be having verbal dysarthria and walked out of the office. The office was concerned for a stroke hence they called EMS. As per the son who is also a registered nurse patient also had episode of similar confusion yesterday which was short-lived and since then to the event today she was at her baseline. As per the documentation from the EMS and the ER symptoms happened at 1 PM. Patient's NIH scale was 12. Neurology was consulted and patient received tPA. Patient seen in ICU. Patient still having significant verbal dysarthria. Patient is able to understand speech but not able to form a sentence. Having minimal drift in right lower limb. Able to move all her limbs. Complaining of bilateral lateral right lower pain. Complaining of having nausea and multiple episodes of vomiting. As per son patient always has vomiting with each CVA events. Patient is awake and alert otherwise unable to communicate through nod ding her head but just not able to formulate words. Review of Systems General: Reports: 10 or more systems reviewed and unremarkable except in HPI and below Const: Denies: fever(s), chills, body aches, change in appetite, change in weight, malaise, night sweats, diaphoresis, change in sleep pattern, daytime sleepiness or snoring Eyes: Denies: change in vision, blurry vision, photophobia, eye discomfort or eye discharge ENMT: Denies: throat pain, enlarged tonsils, hoarseness, mouth pain, oral sores, dry mouth, tinnitus, nasal congestion or post nasal drip Card: Denies: chest pain, palpitations, irregular heart rhythm, edema, swelling of feet/ankles, lightheadedness, syncope, pre-syncope, dyspnea on exertion, orthopnea, leg pain with exertion or acrocyanosis Resp: Denies: dyspnea, productive cough, non-productive cough, wheezing, stridor, pain on inspiration, change in phlegm color, hemoptysis or chest congestion GI: Denies: abdominal pain, nausea, vomiting, hematemesis, coffee ground emesis, dysphagia, heartburn, diarrhea, constipation, bloating, GI cramping, change in bowel habits, pain on defecation, hematochezia or melena : Denies: flank pain, dysuria, urinary frequency, urinary urgency, urinary hesitancy, nocturia or hematuria Musc: Denies: neck pain, back pain, extremity pain, joint pain, joint swelling, joint redness, joint stiffness or limited range of motion Neuro: Denies: headache(s), numbness in extremities, weakness in extremities, sensory changes, lack of coordination, difficulty walking, frequent falls, dizziness, vertigo, confusion, Slurred speech present, difficulty communicating thoughts or seizure-like activity Psych: Denies: anxiety, depression, mood swings, panic attacks, hopelessness or irritability Endo: Denies: polyuria, polydipsia, tired all the time, cold intolerance, excessive sweating, flushing or heat intolerance Terrence/Lymph: Denies: easy bruising or easy bleeding All/Imm: Denies: tongue swelling, facial swelling or acute wheezing Medications/Allergies Home Medications Medication Instructions Recorded Confirmed Last Taken Type amlodipine 10 mg tablet 10 mg PO DAILY 06/22/20 02/25/22 Unknown History insulin aspar prt-insulin aspart See Rx Instructions .Route 06/22/20 02/25/22 Unknown Rx 100 unit/mL (70-30) subcutaneous .COMPLEX #10 mL soln (Novolog Mix 70-30 U-100 Insuln) metoprolol tartrate 50 mg tablet 50 mg PO BID 06/22/20 02/25/22 Unknown History cholecalciferol (vitamin D3) 25 25 mcg PO DAILY 09/26/21 02/25/22 Unknown History mcg (1,000 unit) tablet levothyroxine 200 mcg tablet 200 mcg PO DAILY 09/26/21 02/25/22 Unknown History levothyroxine 25 mcg tablet 25 mcg PO DAILY #90 tabs 01/15/22 02/25/22 Unknown Rx clopidogrel 75 mg tablet 75 mg PO DAILY #30 tabs 02/11/22 02/25/22 Unknown Rx atorvastatin 40 mg tablet 40 mg PO BEDTIME #30 tabs 02/14/22 02/25/22 Unknown Rx insulin syringe-needle U-100 0.5 #100 ea 02/24/22 02/25/22 Unknown Rx mL 31 gauge x 5/16 (Advocate Syringes) aspirin 81 mg tablet,delayed 81 mg PO DAILY 02/25/22 02/25/22 Unknown History release loratadine 10 mg tablet 10 mg PO DAILY 02/25/22 02/25/22 Unknown History losartan 50 mg tablet 50 mg PO DAILY 02/25/22 02/25/22 Unknown History Allergies Allergy/AdvReac Type Severity Reaction Status Date / Time Penicillins Allergy ALGY-Hives Verified 09/26/21 10:53 PFSH Acute PFSH: Medical History (Updated 02/25/22 @ 17:50 by Jad Renteria MD) Cerebellar stroke CKD (chronic kidney disease) Diabetes DJD (degenerative joint disease) Dyslipidemia Hypertension Hypothyroid Osteoporosis Surgical History H/O arthroscopy Family History Other CAD (coronary artery disease) Cancer Diabetes Hypertension Social History Smoking and tobacco status: never smoked Alcohol intake: never Lives independently: Yes Housing: House Vitals/I&O/Wt Last Vital Signs Temp 98.2 F 02/25/22 13:56 Pulse 70 02/25/22 17:00 Resp 19 H 02/25/22 17:00 BP 167/68 02/25/22 17:20 Pulse Ox 95 02/25/22 17:35 O2 Del Method 02/25/22 17:35 02/25/22 02/25/22 02/25/22 06:59 14:59 22:59 Intake Total 81 / 81 Balance 81 / 81 Weight last 48 hrs Weight 108.862 kg Weight 108.862 kg Physical Exam Narrative: General: No acute distress, AO x3, distressed, anxious HEENT: PERRLA, right pupil dilated and fixed secondary to right eye dilation done at ophthalmology office earlier today Chest: Normal vesicular breath sounds, no added sounds, equal good air entry bilaterally CVS: S1-S2 regular, no murmurs, no tachycardia, no gallops, no rubs Abdomen: Soft, nontender, no organomegaly, bowel sounds present Neuro: No focal deficits, no facial deformity, AO x3, power 3 /5 in all limbs Data 02/25/22 14:34 02/25/22 14:34 A&P Assessment and plan (1) Left acute arterial ischemic stroke, MCA (middle cerebral artery): (2) Received intravenous tissue plasminogen activator (t-PA) within last 24 hours: (3) CKD (chronic kidney disease): (4) Diabetes: (5) Hypertension: (6) Dyslipidemia: Plan MCA stroke post tPA: Maintain blood pressure less than 180/90 mmHg. Aspirin 24 hours post tPA. Check A1c, lipid panel. Start on statin 80 mg daily. Frequent neurochecks. PT/OT/speech therapy. Keep n.p.o. for now. CT chest without contrast 24 hours post tPA. Check echocardiogram, bilateral carotid ultrasounds. CKD: Baseline creatinine 1.4-1.7. Currently 1.8. Medical information done for nephrotoxic drugs. Normal saline at 75 cc/h. Type 2 diabetes mellitus: Insulin sliding scale every 6 hourly. Check A1c. Hypertension: Goals as above. Hold off on antihypertensive. If needed can use labetalol or nicardipine depending on heart rate. CODE STATUS: Discussed in detail with patient and patient's son at bedside. Son is the DPOA. Full code. SCDs for DVT prophylaxis. Hold off on medical prophylaxis given tPA status. Protonix for PUD prophylaxis. Attestations Medical Necessity Statement*: Admission for more than 2 midnights for post tPA care new patient with left MCA stroke. Critical Care Time: The high probability of a clinically significant, sudden or life threatening deterioration of the patient's [neurology] system(s) required my full and direct attention, intervention and personal management. The critical care time is as shown. 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
[2022-02-25 18:19] LABS: Glucose Point of Care 173 mg/dL (70-110)
[2022-02-25] MEDS: insulin lispro 100 unit/1 mL SUBCUT ×2 (18:23→23:27)
[2022-02-25] MEDS: pantoprazole 40 mg SDV IVP (18:23)
[2022-02-25] MEDS: sodium chloride 0.9% 1,000 ML 75 ML IV (18:23)
[2022-02-25] MEDS: atorvastatin 40 mg Tablet 80 MG PO (21:01)
[2022-02-25 22:13] LABS: Alcohol Level < 10 mg/dL (0-10); Iron 53 ug/dL (37-145); Vitamin B12 1168 pg/mL (232-1245)
[2022-02-25 22:27] LABS: Percent Saturation 16.8 % (20-50); Total Iron Binding Capacity 315 mcg/dl; Unsaturated Iron Binding 262 ug/dL (112-347)
[2022-02-25 22:55] LABS: Folate Level > 20.0 ng/mL (4.8-37.3)
[2022-02-25 23:14] LABS: Glucose Point of Care 151 mg/dL (70-110)
[2022-02-26] VITALS (50 sets, daily range): BP systolic 109–195; BP diastolic 46–110; PULSE 66–79; RESP 13–23; TEMP 37.1–37.5; O2SAT 89–98
[2022-02-26 04:49] LABS: Basophils # 0.1 10^3/uL (0.0-0.1); Basophils % 0.7 %; Eosinophils # 0.1 10^3/uL (0.0-0.8); Eosinophils % 0.7 %; Hematocrit 38.2 % (37.0-47.0); Hemoglobin 12.6 g/dL (11.5-15.3); Lymphocytes # 1.4 10^3/uL (0.8-4.8); Lymphocytes % 18.6 %; Mean Corpuscular Volume 93.9 fl (81-99); Mean Platelet Volume 11.8 fL (7.4-10.4); Monocytes # 0.7 10^3/uL (0.2-0.9); Monocytes % 9.6 %; Neutrophils # 5.37 10^3/uL (1.8-7.7); Neutrophils % 70.1 %; Nucleated Red Blood Cells % 0 %; Platelet Count 177 10^3/cmm (130-400); Red Blood Count 4.07 10^6/uL (4.1-5.3); Red Cell Distribution Width 13.5 % (12.1-15.1); White Blood Count 7.6 10^3/uL (4.0-10.0)
[2022-02-26 05:07] LABS: Glucose Point of Care 126 mg/dL (70-110)
[2022-02-26 05:30] LABS: Estmated Average Glucose 263; Hemoglobin A1C 10.8 % (4.0-6.0)
[2022-02-26 05:31] LABS: Chol HDL Ratio 3.78 mg/dL (0.0-4.40); Cholesterol 174 mg/dL (0-200); HDL Cholesterol 46 mg/dL (60-100); LDL Cholesterol Calculated 96 mg/dL (50-129); LDL HDL Ratio 2.09 RATIO (0.00-3.22); Triglycerides 160 mg/dL (0-150)
[2022-02-26] MEDS: pantoprazole 40 mg SDV IVP ×2 (05:35→17:46)
--- NOTE | 2022-02-26 06:00 | USCV_ITS ---
Michelle Lutz Age: 76 Gender: F : 1945 Exam Date: 02/26/2022 02:53 Ordering Phys: Jad Renteria MD Technologist: TAMMY Exam Location: [facility] [place] Indication: garbled speech, dysarthria, CVA. No history of cardiac intervention per patient BP: 123 / 49 HR: 68 Rhythm: Sinus Technical Quality: Adequate MEASUREMENTS (Male / Female) Normal Values 2D ECHO LV Diastolic Diameter PLAX 4.1 cm 4.2 - 5.9 / 3.9 - 5.3 cm LV Systolic Diameter PLAX 2.5 cm IVS Diastolic Thickness 1.3 cm 0.6 - 1.0 / 0.6 - 0.9 cm IVS Systolic Thickness 1.6 cm LVPW Diastolic Thickness 1.8 cm 0.6 - 1.0 / 0.6 - 0.9 cm LVPW Systolic Thickness 2.0 cm LVOT Diameter 2.1 cm LV Ejection Fraction 2D Teich 69.6 % LV Ejection Fraction MOD 2C 54.2 % LV Ejection Fraction 2C AL 53.3 % LA Diameter 4.1 cm LA Width 5.2 cm LA Height 4.9 cm RA Width 4.4 cm RA Height 4.0 cm Aorta at Sinotubular Diameter 3.6 cm IVC Diameter 1.4 cm M-MODE Aortic Annulus Diameter 3.5 cm LA Ao Ratio MM 1.3 DOPPLER AV Peak Velocity 141.0 cm/s LVOT Peak Velocity 99.0 cm/s AV Area Cont Eq vti 2.4 cm squared AV Area Cont Eq pk 2.5 cm squared MV Area PHT 4.2 cm squared Mitral E to A Ratio 0.8 MV E' Velocity 52.5 cm/s Mitral E to MV E' Ratio 12.9 Mitral E to LV E' Lateral Ratio 15.3 Mitral E to LV E' Septal Ratio 11.3 TR Peak Velocity 229.3 cm/s TR Peak Gradient 21.0 mmHg TV Peak E Velocity 55.0 cm/s Right Atrial Pressure 5.0 mmHg Pulmonary Artery Systolic Pressu 26.0 mmHg PV Peak Velocity 111.0 cm/s RV Acceleration Time 0.1 s RV Ejection Time 0.4 s RV AcT/ET 0.3 FINDINGS Left Ventricle Normal left ventricular size and systolic function, EF 55%. Mild to moderate concentric left-ventricular hypertrophy.no regional wall motion abnormalities. Grade I/IV diastolic dysfunction (abnormal relaxation filling pattern), normal to mildly elevated filling pressures. Right Ventricle The right ventricle is normal in size and function. Right Atrium The right atrium is normal in size. Left Atrium Mildly increased left atrial size. Mitral Valve Thickened mitral valve. Aortic Valve Thickened aortic valve. Moderate aortic valve calcification. Tricuspid Valve Trace to mild tricuspid valve regurgitation. Pulmonic Valve Pulmonic valve not well visualized. Pericardium Normal pericardium without effusion. Aorta Normal ascending aorta dimension. IVC Inferior vena cava not visualized. CONCLUSIONS Normal left ventricular size and systolic function, EF 55%. Mild to moderate concentric left-ventricular hypertrophy.no regional wall motion abnormalities. Grade I/IV diastolic dysfunction (abnormal relaxation filling pattern), normal to mildly elevated filling pressures. Mildly increased left atrial size. Thickened mitral valve. Thickened aortic valve. Moderate aortic valve calcification. Trace to mild tricuspid valve regurgitation. Estimated pulmonary artery peak systolic pressure 26 mmHg There is no pericardial effusion. There are no intracardiac masses. No similar previous studies are available for comparison Dr Tony Rosas MD FACC (Electronically Signed) Final Date: 26 February 2022 20:29 S
--- NOTE | 2022-02-26 06:00 | USCV_ITS ---
Michelle Lutz Age: 76 Gender: F : 1945 Exam Date: 02/26/2022 02:19 Ordering Phys: Jad Renteria MD Technologist: TAMMY [place] [facility] [place] Indication: garbled speech, dysarthria CVA Risk Factors: garbled speech, dysarthria CVA Previous Vascular Surgery: None Right Brachial BP: 123 / 49 Left Brachial BP: / Right Left Velocity (cm/s) Spectral Plaque Velocity (cm/s) Spectral Plaque Syst/Diast Broadening Syst/Diast Broadening 83.80/ 9.90 None Homo Prox CCA 110.40/ 9.20 None Homo 79.40/ 9.90 Min Homo Mid CCA 96.00 / 11.80 Min Homo 80.50/ 11.00 Min Hetro Distal CCA 59.80 / 8.50 Min Hetro 79.40/ 18.70 Min Kvng Prox ICA 75.40 / 17.10 Min Kvng 70.60/ 16.50 Min Hetro Mid ICA 80.00 / 17.10 Min Hetro 80.50/ 19.80 Min Hetro Distal ICA 83.10 / 15.50 Min Hetro 147.60 Min Hetro ECA 86.20 Min Hetro 0.96 ICA/CCA 0.75 Antegrade Vertebral Antegrade 49.70/ 11.70 cm/s 28.90/ 5.90 cm/s Bi Subclavian Tri 118.0 109.2 0 0 FINDINGS Comparison:. 07/06/12. No significant elevation of systolic or diastolic velocities. Scattered plaque and tortuosity, bilateral carotid arteries. Antegrade vertebral arteries. CONCLUSIONS Bilateral ICA stenosis less than 50%. Mild carotid plaque. Dr. Valeria Ovalle DO (Electronically Signed) Final Date: 26 February 2022 07:51 S
--- NOTE | 2022-02-26 06:55 | USCV_ITS ---
Michelle Lutz Age: 76 Gender: F : 1945 Exam Date: 02/26/2022 07:21 Ordering Phys: Jad Renteria MD Technologist: [place] [facility] [place]ication: BLE SWELLING HISTORY: Lower extremity pain. Lower extremity swelling. PROCEDURES: Venous duplex imaging was performed in bilateral lower extremities. The following venous structures were evaluated: common femoral vein, profunda vein, proximal portion of the greater saphenous vein, superficial femoral vein, and the popliteal vein. In addition, the posterior tibial and peroneal trunk were evaluated. Serial compression, augmentation maneuvers, and spectral Doppler flow evaluation were performed. FINDINGS: No evidence of DVT seen in any vessel visualized at this time. CONCLUSIONS No evidence of right lower extremity DVT. No evidence of left lower extremity DVT. Ravinder Oreilly MD (Electronically Signed) Final Date: 26 February 2022 09:21 S
[2022-02-26 07:05] LABS: Alanine Aminotransferase 13 U/L (0-33); Albumin Level 3.3 g/dL (3.5-5.2); Alkaline Phosphatase 65 U/L (35-105); Anion Gap 12.7 (5-19); Aspartate Amino Transferase 14 U/L (0-32); Blood Urea Nitrogen 33 mg/dL (8-23); Calcium 8.5 mg/dL (8.5-10.5); Carbon Dioxide 27 mmol/L (22-29); Chloride 100 mmol/L (98-107); Free T4 Free Thyroxine 1.35 ng/dL (0.82-1.77); Globulin 2.2 g/dL (1.3-4.6); Glucose 147 mg/dL (65-115); Osmolality Calculated 292 mOsm/kg (285-295); Potassium 3.7 mmol/L (3.5-5.1); Sodium 136 mmol/L (136-145); T3 Free 1.8 PG/ML (2.0-4.4); Total Bilirubin 0.2 mg/dL (0.15-1.2); Total Protein 5.5 g/dL (6.6-8.7)
[2022-02-26 07:36] LABS: Glucose Point of Care 185 mg/dL (70-110)
--- NOTE | 2022-02-26 08:17 | PM.CONSULT ---
Providers/Reason For Consult Consulting Physician/Specialty*: Dr. Lopez Reason for Consult*: Stroke Attending Physician: Jad Renteria MD Primary Care Provider: Karan Staples DO History of Present Illness History of Present Illness Michelle Lutz is a 76 year old female who received tPA yesterday for a stroke presentation. She presented with right hemiparesis and expressive and receptive aphasia. It was atypical and that she was nauseated. Afterwards she had a headache. She received tPA. This morning she is back to baseline. She does not recognize me. She says she had an episode like this about a year ago. Her son said that she had a similar episode the day before. He has felt that she was having multiple strokes. No one else in the family has headaches associated with hemiparesis and she did not have any episodes of this type until several years ago. Review of Systems Narrative: She had a headache yesterday but not today. GENERAL: There has been no fatigue. The patient has not lost weight and denies fever. Energy level is normal. EYES: She has macular degeneration on the right ENT: She is deaf in the right ear RESPIRATORY: There is no cough or shortness of breath. There is no history of asthma or wheezing. CARDIOVASCULAR: There have been no chest pains, palpitations or pain in the calves with walking. GASTROINTESTINAL: She is no longer nauseated today GENITOURINARY: Denies blood in urine, incontinence, frequent urination, burning or kidney stones. MUSCULOSKELETAL: She has pain in her legs. NEUROLOGIC: No history of seizures. She does not normally have headaches. ENDOCRINE: She is diabetic, insulin-dependent and hypothyroid. HEMATOLOGICAL: Denies anemia, easy bleeding, bruising easily or swollen glands. Medications/Allergies Home Medications Medication Instructions Recorded Confirmed Last Taken Type amlodipine 10 mg tablet 10 mg PO DAILY 06/22/20 02/25/22 Unknown History cholecalciferol (vitamin D3) 25 25 mcg PO DAILY 09/26/21 02/25/22 Unknown History mcg (1,000 unit) tablet levothyroxine 200 mcg tablet 200 mcg PO DAILY 09/26/21 02/25/22 Unknown History levothyroxine 25 mcg tablet 25 mcg PO DAILY #90 tabs 01/15/22 02/25/22 Unknown Rx clopidogrel 75 mg tablet 75 mg PO DAILY #30 tabs 02/11/22 02/25/22 Unknown Rx insulin syringe-needle U-100 0.5 #100 ea 02/24/22 02/25/22 Unknown Rx mL 31 gauge x 5/16 (Advocate Syringes) aspirin 81 mg tablet,delayed 81 mg PO DAILY 02/25/22 02/25/22 Unknown History release atorvastatin 40 mg tablet 40 mg PO BEDTIME #90 tabs 02/25/22 Unknown Rx insulin aspar prt-insulin aspart See Rx Instructions .Route 02/25/22 Unknown Rx 100 unit/mL (70-30) subcutaneous .COMPLEX #10 mL soln (Novolog Mix 70-30 U-100 Insuln) loratadine 10 mg tablet 10 mg PO DAILY 02/25/22 02/25/22 Unknown History losartan 50 mg tablet 50 mg PO DAILY 02/25/22 02/25/22 Unknown History metoprolol tartrate 50 mg tablet 50 mg PO BID #180 tabs 02/25/22 Unknown Rx Allergies Allergy/AdvReac Type Severity Reaction Status Date / Time Penicillins Allergy ALGY-Hives Verified 09/26/21 10:53 Current Medications Generic Name Dose Route Start Last Admin Trade Name Freq PRN Reason Stop Dose Admin Atorvastatin Calcium 80 mg 02/25/22 21:00 02/25/22 21:01 Atorvastatin 40 Mg Tablet PO 80 mg BEDTIME PAULINA Administration Sodium Chloride 1,000 mls @ 75 mls/hr 02/25/22 17:30 02/25/22 18:23 Sodium Chloride 0.9% IV 75 mls/hr .[id number] PAULINA Administration Insulin Human Lispro 0 unit 02/25/22 17:30 02/26/22 05:08 Insulin Lispro 100 Unit/1 Ml SUBCUT Not Given Q6H PAULINA Protocol Labetalol HCl 10 mg 02/25/22 20:28 02/25/22 21:04 Labetalol 5 Mg/Ml Sdv 20ml IVP 10 mg Q4H PRN Administration SYSTOLIC BLOOD PRESSURE Ondansetron HCl 4 mg 02/25/22 17:23 02/25/22 19:25 Ondansetron 2 Mg/Ml Sdv 2 Ml IVP 4 mg Q6H PRN Administration NAUSEA AND VOMITING Pantoprazole Sodium 40 mg 02/25/22 17:30 02/26/22 05:35 Pantoprazole 40 Mg Sdv IVP 40 mg Q12H PAULINA Administration PFSH Acute PFSH: Medical History (Updated 02/26/22 @ 06:56 by Jad Renteria MD) Cerebellar stroke CKD (chronic kidney disease) Diabetes DJD (degenerative joint disease) Dyslipidemia Hypertension Hypothyroid Osteoporosis PFO with atrial septal aneurysm Surgical History H/O arthroscopy Family History Other CAD (coronary artery disease) Cancer Diabetes Hypertension Social History Smoking and tobacco status: never smoked Alcohol intake: never Lives independently: Yes Housing: House Vitals/I&O/Wt Last Vital Signs Temp 99 F 02/26/22 06:00 Pulse 66 02/26/22 06:00 Resp 18 02/26/22 06:00 BP 124/57 02/26/22 06:00 Pulse Ox 96 02/26/22 06:00 O2 Del Method 02/25/22 21:45 O2 Flow Rate 2 02/25/22 21:45 02/25/22 02/26/22 02/26/22 22:59 06:59 14:59 Intake Total 181 / 181 Balance 181 / 181 Weight last 48 hrs Weight 242 lb Weight 240 lb Weight 240 lb Physical Exam Narrative: General: Morbidly obese elderly woman seen in ICU. Mental status exam: She is alert with clear speech. She was able to tell me the date. No dysarthria. She can follow simple and complex commands. Cranial nerves: Visual bush full in the left eye. She has ptosis on the right. Eye movements full. Facial movements symmetric. Tongue and palate midline. Motor: No drift. Fine movements in the hands slow but symmetric. Rapid movements normal in the right hand and the left hand. She can lift each of the legs off of the bed, right was stronger than the left. She has some proximal weakness in both legs. Coordination: No cerebellar signs. Sensation: She perceives touch bilaterally and symmetrically in the arms. Gait not tested. Cardiac: S1 and S2 normal without murmur or gallop. Regular rate and rhythm. Data 02/26/22 04:04 02/26/22 05:52 A&P Assessment and plan (1) Received intravenous tissue plasminogen activator (t-PA) within last 24 hours: She received tPA for a threatened left middle cerebral artery stroke. She has no residual. Recommend proceeding with carotid Doppler and echocardiogram and repeat CT of the head to make sure there is no sign of a hemorrhage. If all is well I think she could be discharged this evening or tomorrow morning depending on how well she does getting out of bed and walking. Her plan is to sell her house and moved to [place] where her son lives. She is going to be living at home in the meantime and doing physical therapy through home health would probably be a good idea as the patient seems fairly limited. I will be glad to follow her in my office after discharge. There is some question about whether she might have complex migraine as she has done this repeatedly with out experiencing a stroke in the left middle cerebral artery distribution and her nausea yesterday was atypical and she developed a headache afterwards. I addressed this with her today. (2) Left acute arterial ischemic stroke, MCA (middle cerebral artery): Coding Level of Care Code Acute Trap [employer]ter for [facility] Diagnoses Received intravenous tissue plasminogen activator (t-PA) within last 24 hours Left acute arterial ischemic stroke, MCA (middle cerebral artery) I63.512
[2022-02-26] MEDS: sodium chloride 0.9% 1,000 ML 75 ML IV (08:38)
[2022-02-26] MEDS: levothyroxine 200 mcg Tablet PO (08:38)
[2022-02-26] MEDS: levothyroxine 25 mcg Tablet PO (08:38)
--- NOTE | 2022-02-26 10:22 | PC.CHAP ---
Pastoral Care Encounter/Spiritual Assessment Type of Contact [] Declined post commander visit [] Patient/Family/Request visit [] Outpatient visit [] Follow-up visit [] Physician referral [] Code/Alert [x] Routine visit [] Staff referral [] Actively dying [x] Patient sleeping [] Family support [] [] Out of room [] Palliative care [] [] Receiving care in room [] Pre-surgical visit [] Trauma [] Long length of stay [x] ICU visit [] Other: Relational/Emotional Strength [] Patient feels connected with others/family/visitors/staff [] Distress [] Loneliness/isolation [] Abandonment Spirituality of Patient [] Person of Erma [] Attends Bahai of their Erma [] Believes in Prayer [] Reads Bible or Faith materials [] There are Spiritual issues to be addressed Legal Biller Interventions [x] Prayer [] Active listening [] Non-anxious presence [] Spiritual/emotional support [] Crisis/trauma care [] Spiritual counseling [] Bereavement support [] Provided bereavement packet [] Provided Bible/devotional materials [] Provided toy/stuffed animal, coloring book to patient or family member [] Provided Communion [] Anointing/[place] [] Salvation [x] Completed spiritual assessment [] Other: Impact on Illness or Injury [] Angry [] Fearful [] Anxious [] Often cries [] Exhaustion [] Unable to work [] Unable to attend tenriism [] Unable to walk/stand [] Unable to read [] Unable to drive [] Unable to eat/drink [] Unable to sleep [] Unable to be with family [] Patient intubated [] Other: Summary Time spent with patient
[2022-02-26 11:07] LABS: Glucose Point of Care 288 mg/dL (70-110)
[2022-02-26] MEDS: insulin lispro 100 unit/1 mL SUBCUT ×3 (11:13→21:00)
--- NOTE | 2022-02-26 14:00 | CTR_ITS ---
PROCEDURE INFORMATION: Exam: CT Head Without Contrast Exam date and time: 02/26/2022 4:17 PM Age: 76 years old Clinical indication: Follow up tpa from yesterday; Additional info: Post tpa TECHNIQUE: Imaging protocol: Computed tomography of the head without contrast. Radiation optimization: All CT scans at this facility use at least one of these dose optimization techniques: automated exposure control; mA and/or kV adjustment per patient size (includes targeted exams where dose is matched to clinical indication); or iterative reconstruction. COMPARISON: CT head thrombolytic [id number] 02/25/2022 1:52 PM RADIATION DOSE METRICS: Total DLP (mGy-cm): 1095.58 FINDINGS: Brain: No acute intracranial hemorrhage. No edema. No mass effect. There are stable hypodense areas in the bilateral periventricular white matter suggestive of chronic small vessel ischemic changes. There are stable chronic infarctions in the right cerebellum, chronic lacunar infarctions in bilateral basal ganglia, small chronic infarctions in bilateral frontal lobes. Cerebral ventricles: No ventriculomegaly. Paranasal sinuses: Visualized sinuses are unremarkable. No fluid levels. Mastoid air cells: No mastoid effusion. Bones/joints: No acute fracture. No suspicious lytic or sclerotic bone lesions. Soft tissues: Unremarkable. CT/CT head wo con* [id number] IMPRESSION: Stable exam with chronic ischemic changes with no evidence of acute intracranial hemorrhage, mass or acute infarction.
--- NOTE | 2022-02-26 14:32 | P.PN_ITS ---
Subjective Subjective: No acute events overnight. Today morning on examination patient has a lot clearer thinking and is able to articulate words better than yesterday. Right eye is responding well to the lights. Patient states she is feeling better than yesterday. Has remained hemodynamically stable and afebrile. No further nausea or vomiting. Son at bedside. Vitals/I&O/Wt Last Vital Signs Temp 99 F 02/26/22 06:00 Pulse 74 02/26/22 12:30 Resp 19 H 02/26/22 12:30 BP 150/69 02/26/22 12:30 Pulse Ox 89 L 02/26/22 12:30 O2 Del Method 02/26/22 08:49 O2 Flow Rate 2 02/25/22 21:45 02/25/22 02/26/22 02/26/22 22:59 06:59 14:59 Intake Total 181 / 181 1000 / 1000 Balance 181 / 181 1000 / 1000 Weight last 48 hrs Weight 109.769 kg Weight 108.862 kg Weight 108.862 kg Physical Exam Narrative: General: No acute distress, AO x3, distressed, anxious HEENT: PERRLA, right pupil dilated and fixed secondary to right eye dilation done at ophthalmology office earlier today Chest: Normal vesicular breath sounds, no added sounds, equal good air entry bilaterally CVS: S1-S2 regular, no murmurs, no tachycardia, no gallops, no rubs Abdomen: Soft, nontender, no organomegaly, bowel sounds present Neuro: No focal deficits, no facial deformity, AO x3, power 3 /5 in all limbs Data 02/26/22 04:04 02/26/22 05:52 A&P Assessment and plan (1) Left acute arterial ischemic stroke, MCA (middle cerebral artery): (2) Received intravenous tissue plasminogen activator (t-PA) within last 24 hours: (3) CKD (chronic kidney disease): (4) Diabetes: (5) Hypertension: (6) Dyslipidemia: Plan MCA stroke post tPA: Maintain blood pressure less than 180/90 mmHg till today evening which will be 24 hours post tPA. After that goals will be 140/90 mmHg. Aspirin 24 hours post tPA. Appreciate A1c and lipid panel. Continue with statin 80 mg daily. PT/OT/speech therapy. Diet advance as per speech evaluation to regular. CT chest without contrast 24 hours post tPA. As per son patient has a history of possible PFO. Check lower limb ultra sound to rule out DVT. Appreciate carotid ultrasounds. Echocardiogram pending. CKD: Baseline creatinine 1.4-1.7. Creatinine back to baseline today. Medical information done for nephrotoxic drugs. Stop IV fluids as patient is able to take oral now. Type 2 diabetes mellitus: Insulin sliding scale every 6 hourly. A1c 10.8. Patient takes aspart 70/30 at home. Most likely patient need to be on higher dose of insulin going forward. Hypertension: Goals as above. Hold off on antihypertensive. If needed can use labetalol or nicardipine depending on heart rate. CODE STATUS: Discussed in detail with patient and patient's son at bedside. Son is the DPOA. Full code. SCDs for DVT prophylaxis. Hold off on medical prophylaxis given tPA status. Protonix for PUD prophylaxis. Discharge planning: Plan to discharge home with home health as per PT evaluation still pending. If needed family is okay with SNF placement for short-term. Plan to discharge in next 24 hours as per requirements. Attestations Medical Necessity Statement*: Requires further hospitalization for post tPA care secondary to left MCA acute infarct Time Spent in Patient Care: Greater than 35 minutes Coding Level of Care Code Acute [facility] Diagnoses Left acute arterial ischemic stroke, MCA (middle cerebral artery) I63.512 Received intravenous tissue plasminogen activator (t-PA) within last 24 hours CKD (chronic kidney disease) N18.9 Diabetes E11.9 Hypertension I10 Dyslipidemia E78.5
--- NOTE | 2022-02-26 16:27 | PC.OT ---
OT EVALUATION ATTEMPTED. PATIENT BEING TRANSFERRED TO CT AT THIS TIME. WILL ATTEMPT AGAIN IN A.M.
--- NOTE | 2022-02-26 17:07 | PC.NURSE ---
Taken to CT. Tolerated well.
[2022-02-26 17:31] LABS: Glucose Point of Care 217 mg/dL (70-110)
--- NOTE | 2022-02-26 18:54 | PC.PT ---
Attempted PT evaluation post tPA 24-hour wait., Which is about now, patient gone to CT scan, will reattempt evaluation tomorrow.
[2022-02-26 20:47] LABS: Glucose Point of Care 204 mg/dL (70-110)
[2022-02-26] MEDS: atorvastatin 40 mg Tablet 80 MG PO (20:59)
[2022-02-27] VITALS (12 sets, daily range): BP systolic 143–158; BP diastolic 52–97; PULSE 68–77; RESP 13–21; TEMP 37; O2SAT 88–97
[2022-02-27] MEDS: sodium chloride 0.9% 1,000 ML 75 ML IV (03:28)
[2022-02-27 03:40] LABS: Basophils # 0.1 10^3/uL (0.0-0.1); Basophils % 1.1 %; Eosinophils # 0.1 10^3/uL (0.0-0.8); Eosinophils % 1.9 %; Hematocrit 37.8 % (37.0-47.0); Hemoglobin 12.2 g/dL (11.5-15.3); Lymphocytes # 1.5 10^3/uL (0.8-4.8); Lymphocytes % 21.2 %; Mean Corpuscular HGB Conc 32.3 g/dL (30.0-36.0); Mean Corpuscular Hemoglobin 31.7 pg (28.0-34.0); Mean Corpuscular Volume 98.2 fl (81-99); Mean Platelet Volume 11.3 fL (7.4-10.4); Monocytes # 0.7 10^3/uL (0.2-0.9); Monocytes % 10.4 %; Neutrophils # 4.55 10^3/uL (1.8-7.7); Neutrophils % 65.1 %; Nucleated Red Blood Cells % 0 %; Platelet Count 184 10^3/cmm (130-400); Red Blood Count 3.85 10^6/uL (4.1-5.3); Red Cell Distribution Width 13.6 % (12.1-15.1)
[2022-02-27 04:03] LABS: Alanine Aminotransferase 13 U/L (0-33); Albumin Level 3.2 g/dL (3.5-5.2); Alkaline Phosphatase 67 U/L (35-105); Anion Gap 14.3 (5-19); Aspartate Amino Transferase 15 U/L (0-32); Blood Urea Nitrogen 27 mg/dL (8-23); Calcium 8.4 mg/dL (8.5-10.5); Carbon Dioxide 26 mmol/L (22-29); Chloride 103 mmol/L (98-107); Globulin 2.3 g/dL (1.3-4.6); Glucose 227 mg/dL (65-115); Osmolality Calculated 300 mOsm/kg (285-295); Potassium 4.3 mmol/L (3.5-5.1); Sodium 139 mmol/L (136-145); Total Bilirubin 0.3 mg/dL (0.15-1.2); Total Protein 5.5 g/dL (6.6-8.7)
[2022-02-27 04:12] LABS: Amphetamines Screen Urine Negative (Negative); Barbiturates Screen Urine Negative (Negative); Benzodiazepines Screen Urine Negative (Negative); Cocaine Screen Urine Negative (Negative); Opiate Screen Urine Negative (Negative); PCP Screen Urine Negative (Negative); THC Screen Urine Negative (Negative)
[2022-02-27 04:36] LABS: Potassium, Radom Urine 25 mmol/L; Urine Creatinine 79 mg/dL (28-217); Urine Random Chloride 40 mmol/L; Urine Random Sodium 54 mmol/L
[2022-02-27 04:38] LABS: Urine Appearance Clear (CLEAR); Urine Color Yellow (Yellow)
[2022-02-27 04:39] LABS: Bilirubin Urine Neg (Negative); Blood Urine Neg (Negative); Glucose Urine UA 2+ (Normal); Ketones Urine 1+ (Negative); Leukocyte Esterase Urine Negative (Negative); Nitrate Urine Negative (Negative); Protein Urine 1+ (Negative); Specific Gravity, Urine 1.015 (1.005-1.030); Urobilinogen Urine Norm (Negative); pH Urine 5 (5-7)
[2022-02-27 04:40] LABS: Add Urine Microscopic? YES; Bacteria Urine TRACE /hpf; Fine Granular Casts Urine 0-2 /lpf; Oval Fat Bodies Urine 0-1 /hpf; RBC Urine 0-4 /hpf (0-2); Renal Epithelial Cells Urine 0-5 /hpf; Squamous Epithelial Cell Urine 0-4 /hpf (0-5); Transitional Epi Cells Urine 0-4 /hpf; WBC Urine 0-4 /hpf (0-5)
[2022-02-27] MEDS: pantoprazole 40 mg SDV IVP (04:40)
[2022-02-27 04:41] LABS: Add Urine Culture? No
[2022-02-27 05:21] LABS: Eosinophil Urine No Eosinophils Seen; Urine Eosinophil Count 0 (0-0)
[2022-02-27 07:38] LABS: Glucose Point of Care 311 mg/dL (70-110)
[2022-02-27] MEDS: levothyroxine 25 mcg Tablet PO (08:01)
[2022-02-27] MEDS: levothyroxine 200 mcg Tablet PO (08:01)
[2022-02-27] MEDS: insulin lispro 100 unit/1 mL SUBCUT (08:02)
--- NOTE | 2022-02-27 08:08 | PM.DCS ---
Discharge Providers Date of Admission: 02/25/22 16:33 Date of Discharge: February 27, 2022 Attending Provider at Admission: Jad Renteria MD Attending Provider at Discharge: Jad Renteria MD Primary Care Provider: Karan Staples DO Diagnoses at Discharge Discharge Diagnosis (1) Left acute arterial ischemic stroke, MCA (middle cerebral artery): Status: Acute (2) Received intravenous tissue plasminogen activator (t-PA) within last 24 hours: Status: Acute (3) CKD (chronic kidney disease): Status: Acute (4) Diabetes: Status: Acute (5) Hypertension: Status: Acute (6) Dyslipidemia: Status: Acute Reason for Visit Reason for Visit: [facility] Hospital Course Hospital Course Michelle Lutz is a 76 year old female with past medical history of type 2 diabetes mellitus, CKD with baseline creatinine of 1.4-1.7, multiple TIAs and stroke in the past, hypertension, right eye macular degeneration.? Patient was at ophthalmology office today for examination of right eye.? Right eye was dilated and as she was coming out to make appointments she got confused with what seems to be having verbal dysarthria and walked out of the office.? The office was concerned for a stroke hence they called EMS. As per the son who is also a registered nurse patient also had episode of similar confusion yesterday which was short-lived and since then to the event today she was at her baseline.? As per the documentation from the EMS and the ER symptoms happened at 1 PM.? Patient's NIH scale was 12.? Neurology was consulted and patient received tPA. Patient seen in ICU.? Patient still having significant verbal dysarthria.? Patient is able to understand speech but not able to form a sentence.? Having minimal drift in right lower limb.? Able to move all her limbs.? Complaining of bilateral lateral right lower pain.? Complaining of having nausea and multiple episodes of vomiting.? As per son patient always has vomiting with each CVA events.? Patient is awake and alert otherwise unable to communicate through nodding her head but just not able to formulate words. Patient was admitted to the ICU for post tPA monitoring. Her hospital stay was unremarkable. She participated well with multiple therapies and continue to steadily improve. She was found to have an A1c of more than 10. Repeat CT head was done which was negative for any acute intracranial hemorrhage. She has been discharged in hemodynamically stable condition with advice to follow-up with primary care provider and with neurologist within next 2 weeks. He is being discharged on Lantus 20 units twice daily along with insulin sliding scale. She is to follow-up with a primary care provider with a blood pressure and a blood sugar diary in the next 2 weeks for adjustment of antihypertensives and insulins going forward. Discharge plan were discussed in detail with patient and she was agreeable. Patient was also counseled about [facility] and providers for insulins going forward as an outpatient. Physical Exam Narrative: General: No acute distress, AO x3, HEENT: PERRLA, right pupil dilated and fixed secondary to right eye dilation done at ophthalmology office earlier today Chest: Normal vesicular breath sounds, no added sounds, equal good air entry bilaterally CVS: S1-S2 regular, no murmurs, no tachycardia, no gallops, no rubs Abdomen: Soft, nontender, no organomegaly, bowel sounds present Neuro: No focal deficits, no facial deformity, AO x3, power 3 /5 in all limbs Discharge Data Studies Completed and Pending Completed Studies During Hospitalization Category Date Time Status CT head thrombolytic [id number] Stat Cat Scan 02/25/22 13:[address] head wo con* [id number] Routine Cat Scan 02/26/22 14:00 Completed XR chest 1V portable [id number] Stat Exams 02/25/22 14:07 Completed [place] duplex [place]* [id number] Routine Ultrasound 02/26/22 06:00 Completed CV. echo complete* [id number] Routine Ultrasound 02/26/22 06:00 Completed US venous duplex lower extremity bilat [CV venous Ultrasound 02/26/22 06:55 [place] [id number]] Routine Radiology Impressions Chest X-Ray 02/25/22 14:07 IMPRESSION: Mild cardiomegaly otherwise negative chest. Head CT 02/26/22 14:00 IMPRESSION: Stable exam with chronic ischemic changes with no evidence of acute intracranial hemorrhage, mass or acute infarction. Lower limb Dopplers: ?FINDINGS: ?No evidence of DVT seen in any vessel visualized at this time. ?CONCLUSIONS ?No evidence of right lower extremity DVT. ?No evidence of left lower extremity DVT. ?Ravinder Oreilly MD ?(Electronically Signed) ?Final Date:? ? ? 26 February 2022 ? 09:21 S Echocardiogram: CONCLUSIONS ?Normal left ventricular size and systolic function, EF 55%.? ?Mild to moderate concentric left-ventricular hypertrophy.no ?regional wall motion abnormalities. Grade I/IV diastolic ?dysfunction (abnormal relaxation filling pattern), normal to ?mildly elevated filling pressures. ?Mildly increased left atrial size. ?Thickened mitral valve. ?Thickened aortic valve. Moderate aortic valve calcification. ?Trace to mild tricuspid valve regurgitation. ?Estimated pulmonary artery peak systolic pressure 26 mmHg ?There is no pericardial effusion. ?There are no intracardiac masses. ?No similar previous studies are available for comparison ?Dr Tony Rosas MD [facility] ?(Electronically Signed) ?Final Date:? ? ? 26 February 2022 ? 20:29 Carotid Dopplers: ?No significant elevation of systolic or diastolic velocities. ?Scattered plaque and tortuosity, bilateral carotid arteries. ?Antegrade vertebral arteries. ?CONCLUSIONS ?Bilateral ICA stenosis less than 50%. ?Mild carotid plaque. ?Dr. Valeria Ovalle DO ?(Electronically Signed) ?Final Date:? ? ? 26 February 2022 ? 07:51 Laboratory Results WBC 7.0 10^3/uL (4.0-10.0) 02/27/22 03:31 RBC 3.85 10^6/uL (4.1-5.3) L 02/27/22 03:31 Hgb 12.2 g/dL (11.5-15.3) 02/27/22 03:31 Hct 37.8 % (37.0-47.0) 02/27/22 03:31 MCV 98.2 fl (81-99) 02/27/22 03:31 MCH 31.7 pg (28.0-34.0) 02/27/22 03:31 MCHC 32.3 g/dL (30.0-36.0) 02/27/22 03:31 RDW 13.6 % (12.1-15.1) 02/27/22 03:31 Plt Count 184 10^3/cmm (130-400) 02/27/22 03:31 MPV 11.3 fL (7.4-10.4) H 02/27/22 03:31 Neut % (Auto) 65.1 % 02/27/22 03:31 Lymph % (Auto) 21.2 % 02/27/22 03:31 Roane % (Auto) 10.4 % 02/27/22 03:31 Eos % (Auto) 1.9 % 02/27/22 03:31 Baso % (Auto) 1.1 % 02/27/22 03:31 Neut # (Auto) 4.55 10^3/uL (1.8-7.7) 02/27/22 03:31 Lymph # (Auto) 1.5 10^3/uL (0.8-4.8) 02/27/22 03:31 Roane # (Auto) 0.7 10^3/uL (0.2-0.9) 02/27/22 03:31 Eos # (Auto) 0.1 10^3/uL (0.0-0.8) 02/27/22 03:31 Baso # (Auto) 0.1 10^3/uL (0.0-0.1) 02/27/22 03:31 Nucleated RBC % (auto) 0 % 02/27/22 03:31 Nucleated RBCs # 0.0 /100WBC 02/27/22 03:31 PT 13.20 SECONDS (12.1-14.9) 02/25/22 14:34 INR 0.97 (0.8-1.2) 02/25/22 14:34 APTT 21.4 SECONDS (23.9-36.7) L 02/25/22 14:34 Sodium 139 mmol/L (136-145) 02/27/22 03:31 Potassium 4.3 mmol/L (3.5-5.1) 02/27/22 03:31 Chloride 103 mmol/L (98-107) 02/27/22 03:31 Carbon Dioxide 26 mmol/L (22-29) 02/27/22 03:31 Anion Gap 14.3 (5-19) 02/27/22 03:31 BUN 27 mg/dL (8-23) H 02/27/22 03:31 Creatinine 1.4 mg/dL (0.5-0.9) H 02/27/22 03:31 GFR Calculation Not Reportable 02/27/22 03:31 Glucose 227 mg/dL (65-115) H 02/27/22 03:31 POC Glucose 311 mg/dL (70-110) H 02/27/22 07:31 Estimat Average Glucose 263 02/25/22 14:34 Hemoglobin A1c 10.8 % (4.0-6.0) H 02/25/22 14:34 Calculated Osmolality 300 mOsm/kg (285-295) H 02/27/22 03:31 Calcium 8.4 mg/dL (8.5-10.5) L 02/27/22 03:31 Iron 53 ug/dL (37-145) 02/25/22 14:34 TIBC 315 mcg/dl 02/25/22 14:34 % Saturation 16.8 % (20-50) L 02/25/22 14:34 Unsat Iron Binding 262 ug/dL (112-347) 02/25/22 14:34 Total Bilirubin 0.3 mg/dL (0.15-1.2) 02/27/22 03:31 AST 15 U/L (0-32) 02/27/22 03:31 ALT 13 U/L (0-33) 02/27/22 03:31 Alkaline Phosphatase 67 U/L (35-105) 02/27/22 03:31 Total Protein 5.5 g/dL (6.6-8.7) L 02/27/22 03:31 Albumin 3.2 g/dL (3.5-5.2) L 02/27/22 03:31 Globulin 2.3 g/dL (1.3-4.6) 02/27/22 03:31 Triglycerides 160 mg/dL (0-150) H 02/26/22 04:04 Cholesterol 174 mg/dL (0-200) 02/26/22 04:04 LDL Cholesterol, Calc 96 mg/dL (50-129) 02/26/22 04:04 HDL Cholesterol 46 mg/dL (60-100) L 02/26/22 04:04 LDL/HDL Ratio 2.09 RATIO (0.00-3.22) 02/26/22 04:04 Cholesterol/HDL Ratio 3.78 mg/dL (0.0-4.40) 02/26/22 04:04 Vitamin B12 1168 pg/mL (232-1245) 02/25/22 14:34 Folate > 20.0 ng/mL (4.8-37.3) 02/25/22 14:34 TSH 10.20 uIU/mL (0.27-4.20) H 02/25/22 14:34 Free T4 1.35 ng/dL (0.82-1.77) 02/26/22 05:52 Free T3 1.8 PG/ML (2.0-4.4) L 02/26/22 05:52 Urine Color Yellow (Yellow) 02/27/22 Unknown Urine Appearance Clear (CLEAR) 02/27/22 Unknown Urine pH 5 (5-7) 02/27/22 Unknown Ur Specific Lipan 1.015 (1.005-1.030) 02/27/22 Unknown Urine Protein 1+ (Negative) H 02/27/22 Unknown Urine Glucose (UA) 2+ (Normal) H 02/27/22 Unknown Urine Ketones 1+ (Negative) H 02/27/22 Unknown Urine Blood Neg (Negative) 02/27/22 Unknown Urine Nitrate Negative (Negative) 02/27/22 Unknown Urine Bilirubin Neg (Negative) 02/27/22 Unknown Urine Urobilinogen Norm mg/dL (Negative) 02/27/22 Unknown Ur Leukocyte Esterase Negative (Negative) 02/27/22 Unknown Urine RBC 0-4 /hpf (0-2) H 02/27/22 Unknown Urine WBC 0-4 /hpf (0-5) H 02/27/22 Unknown Ur Eosinophil Smear 0 (0-0) 02/27/22 Unknown Ur Squamous Epith Cells 0-4 /hpf (0-5) H 02/27/22 Unknown Ur Transition Epith Cell 0-4 /hpf 02/27/22 Unknown Ur Renal Epithelial Cell 0-5 /hpf 02/27/22 Unknown Amorphous Sediment Not Reportable 02/27/22 Unknown Urine Bacteria Trace /hpf (NONE) 02/27/22 Unknown Fine Granular Casts 0-2 /lpf 02/27/22 Unknown Ur Oval Fat Bodies 0-1 /hpf 02/27/22 Unknown Urine Eosinophils No eosinophils seen 02/27/22 Unknown Ur Random Sodium 54 mmol/L 02/27/22 Unknown Ur Random Potassium 25 mmol/L 02/27/22 Unknown Ur Random Chloride 40 mmol/L 02/27/22 Unknown Urine Creatinine 79 mg/dL (28-217) 02/27/22 Unknown Urine Opiates Screen Negative ng/mL (Negative) 02/27/22 Unknown Ur Barbiturates Screen Negative ng/mL (Negative) 02/27/22 Unknown Ur Phencyclidine Scrn Negative ng/mL (Negative) 02/27/22 Unknown Ur Amphetamines Screen Negative ng/mL (Negative) 02/27/22 Unknown U Benzodiazepines Scrn Negative ng/mL (Negative) 02/27/22 Unknown Urine Cocaine Screen Negative ng/mL (Negative) 02/27/22 Unknown U Marijuana (THC) Screen Negative ng/mL (Negative) 02/27/22 Unknown Ethyl Alcohol < 10 mg/dL (0-10) 02/25/22 14:34 Vitals Last Vital Signs Temp 98.6 F 02/27/22 01:25 Pulse 71 02/27/22 07:00 Resp 21 H 02/27/22 07:00 BP 147/52 02/27/22 07:00 Pulse Ox 95 02/27/22 06:00 O2 Del Method 02/27/22 02:00 O2 Flow Rate 2 02/27/22 02:00 Discharge Plan Discharge Patient Disposition: Home Condition: Stable Prescriptions: New Basaglar KwikPen U-100 Insulin 100 unit/mL (3 mL) insulin pen 20 unit SUBCUT BID Qty: 15 0RF Humalog KwikPen Insulin 100 unit/mL insulin pen See Protocol SUBCUT TID Qty: 15 0RF Protocol: Insulin Corrective High-Dose Regimen Condition: Fingerstick Blood Glucose Dose/Route: Insulin Units Condition: 141-180 mg/dl Dose/Route: 4 units/SQ Condition: 181-220 mg/dl Dose/Route: 6 units/SQ Condition: 221-260 mg/dl Dose/Route: 8 units/SQ Condition: 261-300 mg/dl Dose/Route: 12 units/SQ Condition: 301-350 mg/dl Dose/Route: 14 units/SQ Condition: 351-400 mg/dl Dose/Route: 16 units/SQ Condition: greater than 400 mg/dl Dose/Route: 18 units/SQ Continued levothyroxine 200 mcg tablet 200 mcg PO DAILY Rx Instructions: take with levothyroxine 25mcg cholecalciferol (vitamin D3) 25 mcg (1,000 unit) tablet 25 mcg PO DAILY levothyroxine 25 mcg tablet 25 mcg PO DAILY Qty: 90 1RF Rx Instructions: with 200mcg to =225mcg clopidogrel 75 mg tablet 75 mg PO DAILY Qty: 30 1RF (DME) insulin syringe-needle U-100 [[facility] Syringes] 0.5 mL 31 gauge x 5/16 syringe See Rx Instructions .Route Qty: 100 11RF Rx Instructions: As directed, inject insulin 3 times a day. metoprolol tartrate 50 mg tablet 50 mg PO BID Qty: 180 3RF loratadine 10 mg tablet 10 mg PO DAILY losartan 50 mg tablet 50 mg PO DAILY aspirin 81 mg Tablet,Delayed Release (Dr/Ec) 81 mg PO DAILY bimatoprost 0.01 % Drops 1 drp OPHTHALMIC (EYE) DAILY brimonidine-timolol 0.2-0.5 % Drops 1 drp OPHTHALMIC (EYE) Q12H Changed atorvastatin 40 mg tablet 80 mg PO BEDTIME Qty: 90 3RF Discontinued insulin asp prt-insulin aspart [Novolog Mix 70-30 U-100 Insuln] 100 unit/mL (70-30) solution See Rx Instructions .ROUTE .COMPLEX Qty: 10 11RF Rx Instructions: 50 units qam and 30 units qpm (max daily dose of 100 units per daily) plus sliding scale amlodipine 10 mg tablet 10 mg PO DAILY Discharge Orders: Discharge Order (Routine); Ordered 02/27/22 Ordered By: Jad Renteria Referrals: Nany Herbert MD [Physician] - 2 weeks (This appointment has been scheduled with Piedad Damon :April at 1200 time. [facility] Neurology Department ,will call you with a closer date to follow within 2 weeks , will follow up with [facility] Nurse Ceasar Hansen ) Karan Staples DO [Primary Care Provider] - 7-10 days (This appointment has been scheduled : February ,time of 08:20 am ) Discharge Diet: Cardiac and Diabetic Discharge Activity: Resume usual activity and Increase activity as tolerated Patient Instructions: Insulin Glargine (By injection) (Lantus, Lantus SoloStar, Toujeo, Semglee), Insulin Lispro (By injection) (HumaLOG, HumaLOG Pen, Lispro-PFC,..., Chronic Kidney Disease (DC), Heart Healthy Diet (DC), What is Insulin (DC), Basic Carbohydrate Counting (DC), Ischemic Stroke (DC), Stroke (DC), Opioid Safety, Stroke Stoplight Activity Restrictions/Additional Instructions: Please check your blood sugar and blood pressure daily at home and maintain a blood sugar and blood pressure diary and follow-up with the primary care provider within next 2 weeks for further adjustment of medications. Your insulin has been changed to Lantus 20 units twice daily along with insulin sliding scale 3 meals with each meal. You should check your blood sugars daily at home before each meal and take the insulins accordingly. Maintain a blood sugar diary and follow-up with a primary care provider. You can get Lantus and lispro at a lower [place] through [facility] pharmacy. Please confirm that with your primary care's office. Please follow-up with neurology within next 2 weeks. Discharge Attestations Time Spent in Discharge Care*: greater than 30 min Specific Discharge Activities: educating patient, educating and/or supporting family/caregiver, discussing with pcp/other providers, discussing with immigration case worker/social workers/dc planners, documenting/other paperwork and evaluating patient/reviewing data Status at Discharge: Cognitive status at discharge: cognitively intact, Behavioral status at discharge: cooperative, Functional status at discharge: uses cane/walker, Overall status at discharge: patient is progressing back to baseline Quality Metrics Clinical Quality Measures [ Cerebrovascular Accident { Contraindication to Antithrombotic: None; antithrombotic prescribed; Contraindication to Anticoagulation: Medical contraindication; Contraindication to Statin: None; Statin prescribed; Contraindication to tPA: None; TPA given; Reason stroke education not provided: Stroke education provided to patient;}] Coding Level of Care Code Acute [facility] DC note Diagnoses Left acute arterial ischemic stroke, MCA (middle cerebral artery) I63.512 Received intravenous tissue plasminogen activator (t-PA) within last 24 hours CKD (chronic kidney disease) N18.9 Diabetes E11.9 Hypertension I10 Dyslipidemia E78.5
--- NOTE | 2022-02-27 09:55 | PC.NURSE ---
Patient worked with therapy this morning. Patient has also received DC orders. All IV's removed. Patient is receiving meds to beds from our pharmacy. Patient will exit via W/C do main exit. Patient discharge instructions given to patient to verbalized understanding
--- NOTE | 2022-02-27 10:39 | PC.NURSE ---
All safety measures met, patient discharged at 1041
== END 2022-02-27 10:41 | disposition home health service (06) | DRG 62 ==
LOC: ER 16:29 → ICU 16:33
PROVIDERS: Admitting Provider Student in an Organized Health Care Education/Training Program; Emergency Provider Emergency Medicine; PCP Family Medicine; Visit Provider Student in an Organized Health Care Education/Training Program
DX: I63.9 Cerebral infarction, unspecified (principal); G81.91 Hemiplegia, unspecified affecting right dominant side; R47.1 Dysarthria and anarthria; R41.0 Disorientation, unspecified; R47.01 Aphasia; R11.2 Nausea with vomiting, unspecified; R29.712 NIHSS score 12; E11.22 Type 2 diabetes mellitus with diabetic chronic kidney disease; I12.9 Hypertensive chronic kidney disease with stage 1 through stage 4 chronic kidney disease, or unspecified chronic kidney disease; N18.9 Chronic kidney disease, unspecified; E78.5 Hyperlipidemia, unspecified; E03.9 Hypothyroidism, unspecified; H35.30 Unspecified macular degeneration; Z79.4 Long term (current) use of insulin; Z79.02 Long term (current) use of antithrombotics/antiplatelets; Z86.73 Personal history of transient ischemic attack (TIA), and cerebral infarction without residual deficits
CPT/HCPCS: 36415; 36416; 70450; 71045; 80053; 80061; 80306; 80307; 81001; 82436; 82570; 82607; 82746; 82962; 83036; 83540; 83550; 84133; 84300; 84439; 84443; 84481; 85025; 85610; 85730; 85999; 92526; 92610; 93005; 93306; 93880; 93970; 94664; 96365; 96366; 96367; 96372; 96375; 96376; 97116; 97161; 99291; 99292; C9113; J1815; J2405; J2997; J3490; J7030

== ENCOUNTER 2022-05-07 13:40 | Outpatient (CLI) | payer MEDICARE, OTHER, SELFPAY ==
--- NOTE | 2022-05-07 14:09 | XRR_ITS ---
PROCEDURE INFORMATION: Exam: XR Right Hip Exam date and time: 05/07/2022 2:19 PM Age: 76 years old Clinical indication: Hip pain; Right hip TECHNIQUE: Imaging protocol: Radiologic exam of the right hip. Views: 1 view hip with pelvis when performed. COMPARISON: CT abdomen pelvis wo con [id number] 08/31/2015 9:26 AM FINDINGS: Bones/joints: Alignment is normal. Mild superolateral femoroacetabular joint space narrowing and small acetabular osteophyte. The femur and visible portion of the pelvis is intact. Soft tissues: Visible soft tissues are unremarkable. XR/XR hip RT 2-3V wo/w pel* [id number] IMPRESSION: 1. No acute fracture. 2. Mild osteoarthritis of the right hip.
--- NOTE | 2022-05-07 14:09 | XRR_ITS ---
PROCEDURE INFORMATION: Exam: XR Right Knee Exam date and time: 05/07/2022 2:19 PM Age: 76 years old Clinical indication: Pain; Right; Prior surgery; Surgery type: Knee replacement; Additional info: Knee pain TECHNIQUE: Imaging protocol: Radiologic exam of the right knee. Views: 1 or 2 views. COMPARISON: No relevant prior studies available. FINDINGS: Bones/joints: There is an intact and well aligned total knee prosthesis. There is no acute fracture. Soft tissues: Unremarkable. XR/XR knee RT 1-2V [id number] IMPRESSION: Intact well-aligned total knee prosthesis. No apparent complications.
== END 2022-05-07 13:41 | disposition home or self-care (01) ==
LOC: RAD 13:43
PROVIDERS: PCP Family Medicine; Visit Provider Family Medicine
DX: M16.11 Unilateral primary osteoarthritis, right hip (principal); M25.561 Pain in right knee; Z96.651 Presence of right artificial knee joint
CPT/HCPCS: 73502; 73560

== ENCOUNTER 2022-05-22 21:08 | Emergency (ER) | payer MEDICARE, OTHER, SELFPAY ==
--- NOTE | 2022-05-22 21:33 | ED_ITS ---
Documented by User: Joaquin Alfonso MD 06/04/22 02:54 HPI - General Adult General: Chief complaint: General Medical Stated complaint: Possible Stroke Time Seen by Provider: 05/22/22 21:33 History of Present Illness: Ms Lutz is a 76-year-old lady with significant past medical history of strokes presenting to the emergency department for strokelike symptoms. She notes headache started yesterday mostly on the left part of her head which resolved this morning however subsequently she has developed difficulty with words, dysarthric speech, and feeling like her legs or not working as well. These are similar to prior strokes. Overall course of symptoms has persisted. Intensity is moderate. Patient is on aspirin, Plavix, statin. No other specific changes in health, exacerbating, or alleviating factors identified. Onset (ago): day(s) Severity: moderate Relieving factors: none Exacerbating factors: none Associated symptoms: Reports headache(s) Review of Systems General: Reports: 10 or more systems reviewed and unremarkable except in HPI and below Neuro: Reports: headache(s) PFSH ED PFSH: Medical History Cerebellar stroke CKD (chronic kidney disease) Diabetes DJD (degenerative joint disease) Dyslipidemia Hypertension Hypothyroid Osteoporosis PFO with atrial septal aneurysm Surgical History H/O arthroscopy Family History Other CAD (coronary artery disease) Cancer Diabetes Hypertension Social History Smoking and tobacco status: never smoked Alcohol intake: never Lives independently: Yes Housing: House Physical Exam Const: COMMON NORMALS: patient oriented x3 and alert GENERAL APPEARANCE: cooperative and well developed HENMT: COMMON NORMALS: normocephalic and atraumatic HEAD & SCALP: nor mocephalic and atraumatic Eye: COMMON NORMALS: conjunctivae normal CONJUNCTIVA: Yes conjunctivae normal SCLERA: sclerae normal Neck/C-Spine: COMMON NORMALS: supple GENERAL: Yes trachea midline Resp: COMMON NORMALS: normal respiratory effort and clear to auscultation bilaterally EFFORT & INSPECTION: Yes able to speak in complete sentences AUSCULTATION: clear to auscultation bilaterally Cardio: COMMON NORMALS: regular rate and regular rhythm RATE: regular rate RHYTHM: regular rhythm GI: COMMON NORMALS: Soft to palpation PALPATION: Yes Soft to palpation and No Tenderness to palpation present (GI) Extremity: GENERAL: Yes normal exam except as noted and No edema Neuro: COMMON NORMALS: patient oriented x3, CN's II-XII intact bilaterally (Mild dysarthria), moves all extremities, no focal motor deficits and no sensory deficits noted SENSORIUM/ORIENTATION: Yes alert and No Orientation impaired OTHER: NIHSS 1 for mildly dysarthric speech Psych: COMMON NORMALS: mental status grossly normal and Normal thought process present THOUGHT PROCESS: Normal thought process present Course Vital Signs: Vital signs: Vital Signs Pulse Rate 72 05/23/22 00:38 Respiratory Rate 16 05/23/22 00:38 Blood Pressure 185/83 05/23/22 00:38 Pulse Oximetry 94 05/23/22 00:38 Oxygen Delivery Me thod Room Air 05/22/22 21:15 MDM - General Adult Medical Decision Making 76-year-old lady presenting with strokelike symptoms and exam as above. NIHSS of 1. Given low NIHSS and timing of symptoms as well as clinical exam and history no occasion for tPA. EKG demonstrates sinus rhythm with nonspecific ST segment abnormalities in interventricular conduction delay, no STEMI. Labs with no significant leukocytosis, mild dehydration and elevated creatinine on electrolyte panel. UTI present. Dehydration present. Head CT with prior finding however no new hemorrhage or mass. No lobar consolidation or pneumothorax on chest x-ray. Patient treated with antibiotic and IV fluids. Labetalol for hypertension. Handed off off to Dr. Brito pending completion of ED evaluation. Slight dysarthria she does have a history of stroke I took over from previous physician no sign of acute stroke here she does have a urinary tract infection likely causing the symptoms her 2-hour troponin here is negative patient prescribed antibiotics for home she is to follow-up with PCP and return if worsening. Patient presents here with Medical Records I reviewed the patient's medical records. Lab Data I reviewed the patient's lab results. 05/22/22 21:50 05/22/22 21:50 Radiology Impressions Chest X-Ray 05/22/22 21:43 IMPRESSION: 1. Negative for infiltrate. 2. Cardiomegaly. 3. Right mid lung field calcified granuloma. Head CT 05/22/22 21:43 IMPRESSION: 1. Negative for intracranial hemorrhage or mass effect. 2. Moderate diffuse white matter disease likely reflecting chronic microvascular ischemic changes. 3. Right cerebellar hemisphere chronic infarct. Laboratory Results WBC 7.6 10^3/uL (4.0-10.0) 05/22/22 21:50 RBC 4.64 10^6/uL (4.1-5.3) 05/22/22 21:50 Hgb 14.2 g/dL (11.5-15.3) 05/22/22 21:50 Hct 43.8 % (37.0-47.0) 05/22/22 21:50 MCV 94.4 fl (81-99) 05/22/22 21:50 MCH 30.6 pg (28.0-34.0) 05/22/22 21:50 MCHC 32.4 g/dL (30.0-36.0) 05/22/22 21:50 RDW 13.7 % (12.1-15.1) 05/22/22 21:50 Plt Count 203 10^3/cmm (130-400) 05/22/22 21:50 MPV 11.1 fL (7.4-10.4) H 05/22/22 21:50 Neut % (Auto) 71.7 % 05/22/22 21:50 Lymph % (Auto) 17.7 % 05/22/22 21:50 [place] % (Auto) 7.5 % 05/22/22 21:50 Eos % (Auto) 2.0 % 05/22/22 21:50 Baso % (Auto) 1.0 % 05/22/22 21:50 Neut # (Auto) 5.48 10^3/uL (1.8-7.7) 05/22/22 21:50 Lymph # (Auto) 1.4 10^3/uL (0.8-4.8) 05/22/22 21:50 [place] # (Auto) 0.6 10^3/uL (0.2-0.9) 05/22/22 21:50 Eos # (Auto) 0.2 10^3/uL (0.0-0.8) 05/22/22 21:50 Baso # (Auto) 0.1 10^3/uL (0.0-0.1) 05/22/22 21:50 Nucleated RBC % (auto) 0 % 05/22/22 21:50 Nucleated RBCs # 0.0 /100WBC 05/22/22 21:50 Sodium 134 mmol/L (136-145) L 05/22/22 21:50 Potassium 3.9 mmol/L (3.5-5.1) 05/22/22 21:50 Chloride 97 mmol/L (98-107) L 05/22/22 21:50 Carbon Dioxide 22 mmol/L (22-29) 05/22/22 21:50 Anion Gap 18.9 (5-19) 05/22/22 21:50 BUN 29 mg/dL (8-23) H 05/22/22 21:50 Creatinine 1.9 mg/dL (0.5-0.9) H 05/22/22 21:50 GFR Calculation Not Reportable 05/22/22 21:50 Glucose 229 mg/dL (65-115) H 05/22/22 21:50 POC Glucose 231 mg/dL (70-110) H 05/22/22 21:52 Calculated Osmolality 291 mOsm/kg (285-295) 05/22/22 21:50 Calcium 9.2 mg/dL (8.5-10.5) 05/22/22 21:50 Total Bilirubin 0.3 mg/dL (0.15-1.2) 05/22/22 21:50 AST 22 U/L (0-32) 05/22/22 21:50 ALT 19 U/L (0-33) 05/22/22 21:50 Alkaline Phosphatase 72 U/L (35-105) 05/22/22 21:50 Troponin T Baseline 21 ng/L (0-10) H 05/22/22 21:50 Troponin T 120 Minute 20.03 ng/L (0-10) H 05/22/22 23:49 Delta Troponin T -0.97 ABS# (0-10) L 05/22/22 23:49 C-Reactive Protein 3.5 mg/L (0.0-4.9) 05/22/22 21:50 NT-Pro-B Natriuret Pep 773 pg/mL (0-450) H 05/22/22 21:50 Total Protein 7.1 g/dL (6.6-8.7) 05/22/22 21:50 Albumin 3.5 g/dL (3.5-5.2) 05/22/22 21:50 Globulin 3.6 g/dL (1.3-4.6) 05/22/22 21:50 Procalcitonin 0.04 ng/mL (0-0.5) 05/22/22 21:50 TSH 8.43 uIU/mL (0.27-4.20) H 05/22/22 21:50 Free T4 1.57 ng/dL (0.82-1.77) 05/22/22 21:50 Urine Color Yellow (Yellow) 05/22/22 22:50 Urine Appearance Cloudy (CLEAR) A 05/22/22 22:50 Urine pH 5 (5-7) 05/22/22 22:50 Ur Specific [place] 1.020 (1.005-1.030) 05/22/22 22:50 Urine Protein 3+ (Negative) H 05/22/22 22:50 Urine Glucose (UA) 4+ (Normal) H 05/22/22 22:50 Urine Ketones Negative (Negative) 05/22/22 22:50 Urine Blood 2+ (Negative) H 05/22/22 22:50 Urine Nitrate Negative (Negative) 05/22/22 22:50 Urine Bilirubin Neg (Negative) 05/22/22 22:50 Urine Urobilinogen Norm mg/dL (Negative) 05/22/22 22:50 Ur Leukocyte Esterase 2+ (Negative) H 05/22/22 22:50 Urine RBC 0-4 /hpf (0-2) H 05/22/22 22:50 Urine WBC Too numerous to cnt /hpf (0-5) H 05/22/22 22:50 Ur Squamous Epith Cells 10-15 /hpf (0-5) H 05/22/22 22:50 Ur Renal Epithelial Cell 15-25 /hpf 05/22/22 22:50 Amorphous Sediment Not Reportable 05/22/22 22:50 Urine Bacteria Trace /hpf (NONE) 05/22/22 22:50 Discharge Plan Discharge Patient Disposition: Home Clinical Impression: Acute UTI, CKD (chronic kidney disease), Dehydration Condition: Stable Prescriptions: New ciprofloxacin HCl 500 mg tablet 500 mg PO BID Qty: 20 0RF No Action cholecalciferol (vitamin D3) 25 mcg (1,000 unit) tablet 25 mcg PO DAILY metoprolol tartrate 50 mg tablet 50 mg PO BID Qty: 180 3RF levothyroxine 200 mcg tablet 200 mcg PO DAILY Qty: 30 0RF Rx Instructions: take with levothyroxine 25mcg (DME) insulin syringe-needle U-100 [Advocate Syringes] 0.5 mL 31 gauge x 5/16 syringe See Rx Instructions .Route Qty: 100 11RF Rx Instructions: As directed, inject insulin 3 times a day. Humalog KwikPen Insulin 100 unit/mL insulin pen See Protocol SUBCUT TID Qty: 15 5RF Protocol: Insulin Corrective High-Dose Regimen Condition: Fingerstick Blood Glucose Dose/Route: Insulin Units Condition: 141-180 mg/dl Dose/Route: 4 units/SQ Condition: 181-220 mg/dl Dose/Route: 6 units/SQ Condition: 221-260 mg/dl Dose/Route: 8 units/SQ Condition: 261-300 mg/dl Dose/Route: 12 units/SQ Condition: 301-350 mg/dl Dose/Route: 14 units/SQ Condition: 351-400 mg/dl Dose/Route: 16 units/SQ Condition: greater than 400 mg/dl Dose/Route: 18 units/SQ clopidogrel 75 mg tablet 75 mg PO DAILY Qty: 90 3RF levothyroxine 25 mcg tablet 25 mcg PO DAILY Qty: 90 1RF Rx Instructions: with 200mcg to =225mcg loratadine 10 mg tablet 10 mg PO DAILY Qty: 90 3RF atorvastatin 40 mg tablet 80 mg PO BEDTIME Qty: 90 3RF raloxifene 60 mg tablet 60 mg PO DAILY Qty: 90 3RF losartan 50 mg tablet 50 mg PO DAILY Qty: 90 3RF (DME) FreeStyle Elizabeth 2 Sensor Kit See Rx Instructions .ROUTE .COMPLEX Qty: 1 11RF Dose Instruction: USE DIRECTED Rx Instructions: USE DIRECTED insulin glargine [Lantus Solostar U-100 Insulin] 100 unit/mL (3 mL) insulin pen 35 unit SUBCUT BID Qty: 15 3RF aspirin 81 mg Tablet,Delayed Release (Dr/Ec) 81 mg PO DAILY bimatoprost 0.01 % Drops 1 drp OPHTHALMIC (EYE) DAILY brimonidine-timolol 0.2-0.5 % Drops 1 drp OPHTHALMIC (EYE) Q12H Discharge Orders: Discharge ED (Routine); Ordered 05/23/22 Ordered By: Migdalia Brito Referrals: Karan Staples DO [Primary Care Provider] - Discharge Diet: Usual diet Discharge Activity: Increase activity as tolerated Patient Instructions: Dehydration (ED), Urinary Tract Infection in Older Adults (ED) Activity Restrictions/Additional Instructions: Thank you for visiting the emergency department. You were seen and evaluated for strokelike symptoms. The exact cause of your symptoms is unclear though may be due to what is referred to us recrudescence of prior strokelike symptoms in the context of dehydration and urinary tract infection. Please ensure that you are staying hydrated. I will prescribe antibiotics. Please follow-up with your primary care provider. Return to the emergency department for worsening symptoms or anything else that you are concerned about and feel needs emergency department evaluation. Coding Level of Care Code ED Objects Conservator for Chg Fwd Documented by User: Migdalia Brito MD 05/23/22 00:34 HPI - General Adult General: Chief complaint: General Medical Stated complaint: Possible Stroke Time Seen by Provider: 05/22/22 21:33 PFSH ED PFSH: Medical History Cerebellar stroke CKD (chronic kidney disease) Diabetes DJD (degenerative joint disease) Dyslipidemia Hypertension Hypothyroid Osteoporosis PFO with atrial septal aneurysm Surgical History H/O arthroscopy Family History Other CAD (coronary artery disease) Cancer Diabetes Hypertension Social History Smoking and tobacco status: never smoked Alcohol intake: never Lives independently: Yes Housing: House Course Vital Signs: Vital signs: Vital Signs Pulse Rate 72 05/23/22 00:38 Respiratory Rate 16 05/23/22 00:38 Blood Pressure 185/83 05/23/22 00:38 Pulse Oximetry 94 05/23/22 00:38 Oxygen Delivery Me thod Room Air 05/22/22 21:15 MDM - General Adult Medical Decision Making Slight dysarthria she does have a history of stroke I took over from previous physician no sign of acute stroke here she does have a urinary tract infection likely causing the symptoms her 2-hour troponin here is negative patient prescribed antibiotics for home she is to follow-up with PCP and return if worsening. Patient presents here with Lab Data 05/22/22 21:50 05/22/22 21:50 Radiology Impressions Chest X-Ray 05/22/22 21:43 IMPRESSION: 1. Negative for infiltrate. 2. Cardiomegaly. 3. Right mid lung field calcified granuloma. Head CT 05/22/22 21:43 IMPRESSION: 1. Negative for intracranial hemorrhage or mass effect. 2. Moderate diffuse white matter disease likely reflecting chronic microvascular ischemic changes. 3. Right cerebellar hemisphere chronic infarct. Laboratory Results WBC 7.6 10^3/uL (4.0-10.0) 05/22/22 21:50 RBC 4.64 10^6/uL (4.1-5.3) 05/22/22 21:50 Hgb 14.2 g/dL (11.5-15.3) 05/22/22 21:50 Hct 43.8 % (37.0-47.0) 05/22/22 21:50 MCV 94.4 fl (81-99) 05/22/22 21:50 MCH 30.6 pg (28.0-34.0) 05/22/22 21:50 MCHC 32.4 g/dL (30.0-36.0) 05/22/22 21:50 RDW 13.7 % (12.1-15.1) 05/22/22 21:50 Plt Count 203 10^3/cmm (130-400) 05/22/22 21:50 MPV 11.1 fL (7.4-10.4) H 05/22/22 21:50 Neut % (Auto) 71.7 % 05/22/22 21:50 Lymph % (Auto) 17.7 % 05/22/22 21:50 [place] % (Auto) 7.5 % 05/22/22 21:50 Eos % (Auto) 2.0 % 05/22/22 21:50 Baso % (Auto) 1.0 % 05/22/22 21:50 Neut # (Auto) 5.48 10^3/uL (1.8-7.7) 05/22/22 21:50 Lymph # (Auto) 1.4 10^3/uL (0.8-4.8) 05/22/22 21:50 [place] # (Auto) 0.6 10^3/uL (0.2-0.9) 05/22/22 21:50 Eos # (Auto) 0.2 10^3/uL (0.0-0.8) 05/22/22 21:50 Baso # (Auto) 0.1 10^3/uL (0.0-0.1) 05/22/22 21:50 Nucleated RBC % (auto) 0 % 05/22/22 21:50 Nucleated RBCs # 0.0 /100WBC 05/22/22 21:50 Sodium 134 mmol/L (136-145) L 05/22/22 21:50 Potassium 3.9 mmol/L (3.5-5.1) 05/22/22 21:50 Chloride 97 mmol/L (98-107) L 05/22/22 21:50 Carbon Dioxide 22 mmol/L (22-29) 05/22/22 21:50 Anion Gap 18.9 (5-19) 05/22/22 21:50 BUN 29 mg/dL (8-23) H 05/22/22 21:50 Creatinine 1.9 mg/dL (0.5-0.9) H 05/22/22 21:50 GFR Calculation Not Reportable 05/22/22 21:50 Glucose 229 mg/dL (65-115) H 05/22/22 21:50 POC Glucose 231 mg/dL (70-110) H 05/22/22 21:52 Calculated Osmolality 291 mOsm/kg (285-295) 05/22/22 21:50 Calcium 9.2 mg/dL (8.5-10.5) 05/22/22 21:50 Total Bilirubin 0.3 mg/dL (0.15-1.2) 05/22/22 21:50 AST 22 U/L (0-32) 05/22/22 21:50 ALT 19 U/L (0-33) 05/22/22 21:50 Alkaline Phosphatase 72 U/L (35-105) 05/22/22 21:50 Troponin T Baseline 21 ng/L (0-10) H 05/22/22 21:50 Troponin T 120 Minute 20.03 ng/L (0-10) H 05/22/22 23:49 Delta Troponin T -0.97 ABS# (0-10) L 05/22/22 23:49 C-Reactive Protein 3.5 mg/L (0.0-4.9) 05/22/22 21:50 NT-Pro-B Natriuret Pep 773 pg/mL (0-450) H 05/22/22 21:50 Total Protein 7.1 g/dL (6.6-8.7) 05/22/22 21:50 Albumin 3.5 g/dL (3.5-5.2) 05/22/22 21:50 Globulin 3.6 g/dL (1.3-4.6) 05/22/22 21:50 Procalcitonin 0.04 ng/mL (0-0.5) 05/22/22 21:50 TSH 8.43 uIU/mL (0.27-4.20) H 05/22/22 21:50 Free T4 1.57 ng/dL (0.82-1.77) 05/22/22 21:50 Urine Color Yellow (Yellow) 05/22/22 22:50 Urine Appearance Cloudy (CLEAR) A 05/22/22 22:50 Urine pH 5 (5-7) 05/22/22 22:50 Ur Specific [place] 1.020 (1.005-1.030) 05/22/22 22:50 Urine Protein 3+ (Negative) H 05/22/22 22:50 Urine Glucose (UA) 4+ (Normal) H 05/22/22 22:50 Urine Ketones Negative (Negative) 05/22/22 22:50 Urine Blood 2+ (Negative) H 05/22/22 22:50 Urine Nitrate Negative (Negative) 05/22/22 22:50 Urine Bilirubin Neg (Negative) 05/22/22 22:50 Urine Urobilinogen Norm mg/dL (Negative) 05/22/22 22:50 Ur Leukocyte Esterase 2+ (Negative) H 05/22/22 22:50 Urine RBC 0-4 /hpf (0-2) H 05/22/22 22:50 Urine WBC Too numerous to cnt /hpf (0-5) H 05/22/22 22:50 Ur Squamous Epith Cells 10-15 /hpf (0-5) H 05/22/22 22:50 Ur Renal Epithelial Cell 15-25 /hpf 05/22/22 22:50 Amorphous Sediment Not Reportable 05/22/22 22:50 Urine Bacteria Trace /hpf (NONE) 05/22/22 22:50 Discharge Plan Discharge Patient Disposition: Home Clinical Impression: Acute UTI, CKD (chronic kidney disease), Dehydration Condition: Stable Prescriptions: New ciprofloxacin HCl 500 mg tablet 500 mg PO BID Qty: 20 0RF No Action cholecalciferol (vitamin D3) 25 mcg (1,000 unit) tablet 25 mcg PO DAILY metoprolol tartrate 50 mg tablet 50 mg PO BID Qty: 180 3RF levothyroxine 200 mcg tablet 200 mcg PO DAILY Qty: 30 0RF Rx Instructions: take with levothyroxine 25mcg (DME) insulin syringe-needle U-100 [Advocate Syringes] 0.5 mL 31 gauge x 5/16 syringe See Rx Instructions .Route Qty: 100 11RF Rx Instructions: As directed, inject insulin 3 times a day. Humalog KwikPen Insulin 100 unit/mL insulin pen See Protocol SUBCUT TID Qty: 15 5RF Protocol: Insulin Corrective High-Dose Regimen Condition: Fingerstick Blood Glucose Dose/Route: Insulin Units Condition: 141-180 mg/dl Dose/Route: 4 units/SQ Condition: 181-220 mg/dl Dose/Route: 6 units/SQ Condition: 221-260 mg/dl Dose/Route: 8 units/SQ Condition: 261-300 mg/dl Dose/Route: 12 units/SQ Condition: 301-350 mg/dl Dose/Route: 14 units/SQ Condition: 351-400 mg/dl Dose/Route: 16 units/SQ Condition: greater than 400 mg/dl Dose/Route: 18 units/SQ clopidogrel 75 mg tablet 75 mg PO DAILY Qty: 90 3RF levothyroxine 25 mcg tablet 25 mcg PO DAILY Qty: 90 1RF Rx Instructions: with 200mcg to =225mcg loratadine 10 mg tablet 10 mg PO DAILY Qty: 90 3RF atorvastatin 40 mg tablet 80 mg PO BEDTIME Qty: 90 3RF raloxifene 60 mg tablet 60 mg PO DAILY Qty: 90 3RF losartan 50 mg tablet 50 mg PO DAILY Qty: 90 3RF (DME) FreeStyle [place] 2 Sensor Kit See Rx Instructions .ROUTE .COMPLEX Qty: 1 11RF Dose Instruction: USE DIRECTED Rx Instructions: USE DIRECTED insulin glargine [Lantus Solostar U-100 Insulin] 100 unit/mL (3 mL) insulin pen 35 unit SUBCUT BID Qty: 15 3RF aspirin 81 mg Tablet,Delayed Release (Dr/Ec) 81 mg PO DAILY bimatoprost 0.01 % Drops 1 drp OPHTHALMIC (EYE) DAILY brimonidine-timolol 0.2-0.5 % Drops 1 drp OPHTHALMIC (EYE) Q12H Discharge Orders: Discharge ED (Routine); Ordered 05/23/22 Ordered By: Migdalia Brito Referrals: Karan Staples, [Primary Care Provider] - Discharge Diet: Usual diet Discharge Activity: Increase activity as tolerated Patient Instructions: Dehydration (ED), Urinary Tract Infection in Older Adults (ED) Activity Restrictions/Additional Instructions: Thank you for visiting the emergency department. You were seen and evaluated for strokelike symptoms. The exact cause of your symptoms is unclear though may be due to what is referred to us recrudescence of prior strokelike symptoms in the context of dehydration and urinary tract infection. Please ensure that you are staying hydrated. I will prescribe antibiotics. Please follow-up with your primary care provider. Return to the emergency department for worsening symptoms or anything else that you are concerned about and feel needs emergency department evaluation. Coding Level of Care Code ED Objects Conservator for Padilla Boyer
[2022-05-22 21:36] VITALS: PULSE 77; RESP 16; O2SAT 93
--- NOTE | 2022-05-22 21:43 | XRR_ITS ---
PROCEDURE INFORMATION: Exam: XR Chest Exam date and time: 05/22/2022 9:47 PM Age: 76 years old Clinical indication: Cough; Additional info: Stroke like symptoms TECHNIQUE: Imaging protocol: Radiologic exam of the chest. Views: 1 view. COMPARISON: CR XR chest 1V portable [id number] 02/25/2022 4:03 PM FINDINGS: Lungs: Right mid lung field calcified granuloma. Pleural spaces: Unremarkable. No pleural effusion. No pneumothorax. Heart/Mediastinum: Cardiomegaly. Bones/joints: Unremarkable. XR/XR chest 1V portable [id number] IMPRESSION: 1. Negative for infiltrate. 2. Cardiomegaly. 3. Right mid lung field calcified granuloma.
--- NOTE | 2022-05-22 21:43 | CTR_ITS ---
PROCEDURE INFORMATION: Exam: CT Head Without Contrast Exam date and time: 05/22/2022 10:03 PM Age: 76 years old Clinical indication: Pain; Walking, difficulty; Headache; Patient HX: C/O FREY with gait instability. History of cerebellar stroke with dysarthria. ; Additional info: Strokelike symptoms, gait instability, dysarthria, word finding difficulty TECHNIQUE: Imaging protocol: Computed tomography of the head without contrast. Radiation optimization: All CT scans at this facility use at least one of these dose optimization techniques: automated exposure control; mA and/or kV adjustment per patient size (includes targeted exams where dose is matched to clinical indication); or iterative reconstruction. REPORTING DATA: Count of CT and Cardiac NM exams in prior 12 months: This patient has received 2 known CTs and 0 known cardiac nuclear medicine studies in the 12 months prior to the current study. COMPARISON: CT head wo con* [id number] 02/26/2022 4:17 PM RADIATION DOSE METRICS: Total DLP (mGy-cm): 1059.55 FINDINGS: Brain: Moderate diffuse white matter disease likely reflecting chronic microvascular ischemic changes. Right cerebellar hemisphere chronic infarct. Cerebral ventricles: No ventriculomegaly. Paranasal sinuses: Visualized sinuses are unremarkable. No fluid levels. Mastoid air cells: Visualized mastoid air cells are well aerated. Bones/joints: Unremarkable. No acute fracture. Soft tissues: Unremarkable. CT/CT head wo con* [id number] IMPRESSION: 1. Negative for intracranial hemorrhage or mass effect. 2. Moderate diffuse white matter disease likely reflecting chronic microvascular ischemic changes. 3. Right cerebellar hemisphere chronic infarct.
[2022-05-22 21:44] VITALS: BP 230/90
--- NOTE | 2022-05-22 21:48 | ECG_ITS ---
[facility] Test Date: 2022-05-22 Pat Name: Michelle Lutz Department: Room: Gender: Female Site Superintendent: : 1945 Requested By: Joaquin Alfonso Order Number: [id number] Dina MD: Josh Villauneva M.D. Measurements Intervals [place] Rate: 71 P: 116 SD: 191 QRS: 6 QRSD: 120 T: 1 QT: 396 QTc: 433 Interpretive Statements SINUS RHYTHM POSSIBLE LEFT VENTRICULAR HYPERTROPHY [VOLTAGE CRITERIA PLUS LAE OR QRS WIDENING] POSSIBLE ANTEROSEPTAL MYOCARDIAL INFARCTION , OF INDETERMINATE AGE [30 ms Q WAVE IN V1-V4] Compared to ECG 02/25/2022 14:12:24 No significant changes Electronically Signed On 05-22-2022 23:39:00 CDT by Josh Villanueva M.D. [id number]
[2022-05-22 21:54] LABS: Glucose Point of Care 231 mg/dL (70-110)
[2022-05-22 21:56] LABS: Basophils # 0.1 10^3/uL (0.0-0.1); Eosinophils # 0.2 10^3/uL (0.0-0.8); Hematocrit 43.8 % (37.0-47.0); Hemoglobin 14.2 g/dL (11.5-15.3); Lymphocytes # 1.4 10^3/uL (0.8-4.8); Lymphocytes % 17.7 %; Mean Corpuscular HGB Conc 32.4 g/dL (30.0-36.0); Mean Corpuscular Hemoglobin 30.6 pg (28.0-34.0); Mean Corpuscular Volume 94.4 fl (81-99); Mean Platelet Volume 11.1 fL (7.4-10.4); Monocytes # 0.6 10^3/uL (0.2-0.9); Monocytes % 7.5 %; Neutrophils # 5.48 10^3/uL (1.8-7.7); Neutrophils % 71.7 %; Nucleated Red Blood Cells % 0 %; Platelet Count 203 10^3/cmm (130-400); Red Blood Count 4.64 10^6/uL (4.1-5.3); Red Cell Distribution Width 13.7 % (12.1-15.1); White Blood Count 7.6 10^3/uL (4.0-10.0)
[2022-05-22 22:20] LABS: Troponin(5th) Baseline 21 ng/L (0-10)
[2022-05-22 22:26] LABS: NT Pro B Type Natriuretic Pept 773 pg/mL (0-450); Procalcitonin 0.04 ng/mL (0-0.5); Thyroid Stimulating Hormone 8.43 uIU/mL (0.27-4.20)
[2022-05-22 22:33] VITALS: BP 188/99
[2022-05-22] MEDS: labetalol 5 mg/mL SDV 20mL 10 MG IVP (22:34)
[2022-05-22 22:37] LABS: Alanine Aminotransferase 19 U/L (0-33); Albumin Level 3.5 g/dL (3.5-5.2); Alkaline Phosphatase 72 U/L (35-105); Blood Urea Nitrogen 29 mg/dL (8-23); C Reactive Protein 3.5 mg/L (0.0-4.9); Calcium 9.2 mg/dL (8.5-10.5); Carbon Dioxide 22 mmol/L (22-29); Chloride 97 mmol/L (98-107); Globulin 3.6 g/dL (1.3-4.6); Glucose 229 mg/dL (65-115); Osmolality Calculated 291 mOsm/kg (285-295); Sodium 134 mmol/L (136-145); Total Bilirubin 0.3 mg/dL (0.15-1.2); Total Protein 7.1 g/dL (6.6-8.7)
[2022-05-22 22:44] LABS: Anion Gap 18.9 (5-19); Aspartate Amino Transferase 22 U/L (0-32); Potassium 3.9 mmol/L (3.5-5.1)
[2022-05-22 22:57] LABS: Free T4 Free Thyroxine 1.57 ng/dL (0.82-1.77)
[2022-05-22 23:05] VITALS: BP 134/78
[2022-05-22 23:05] LABS: Add Urine Microscopic? YES; Bilirubin Urine Neg (Negative); Blood Urine 2+ (Negative); Glucose Urine UA 4+ (Normal); Ketones Urine Negative (Negative); Leukocyte Esterase Urine 2+ (Negative); Nitrate Urine Negative (Negative); Protein Urine 3+ (Negative); Urine Appearance Cloudy (CLEAR); Urine Color Yellow (Yellow); Urobilinogen Urine Norm (Negative); pH Urine 5 (5-7)
[2022-05-22 23:06] LABS: Add Urine Culture? No; Bacteria Urine TRACE /hpf; RBC Urine 0-4 /hpf (0-2); Renal Epithelial Cells Urine 15-25 /hpf; WBC Urine TOO NUMEROUS TO CNT /hpf (0-5)
[2022-05-22] MEDS: sodium chloride 0.9% 1,000 ML 999 ML IV (23:06)
--- NOTE | 2022-05-22 23:43 | ECG_ITS ---
[facility] Test Date: 2022-05-22 Pat Name: Michelle Lutz Department: Room: Gender: Female Service Trainer: : 1945 Requested By: Joaquin Alfonso Order Number: [id number] Dina MD: Tony Rosas M.D. Measurements Intervals [place] Rate: 71 P: 131 MN: 181 QRS: 12 QRSD: 124 T: 18 QT: 432 QTc: 471 Interpretive Statements SINUS RHYTHM MODERATE VOLTAGE CRITERIA FOR LVH, CONSIDER NORMAL VARIANT [MEETS CRITERIA IN ONE OF: R(aVL), S(V1), R(V5), R(V5/V6)+S(V1)] POSSIBLE ANTEROSEPTAL MYOCARDIAL INFARCTION , PROBABLY RECENT [30 ms Q WAVE IN V1-V4] ACUTE SD Compared to ECG 05/22/2022 21:48:17 No significant changes Electronically Signed On 05-23-2022 21:36:14 CDT by Tony Rosas M.D. [id number]
[2022-05-22] MEDS: ciprofloxacin 500 mg Tablet PO (23:45)
[2022-05-22 23:48] VITALS: BP 166/76; PULSE 71; RESP 16; O2SAT 95
[2022-05-23] VITALS: BP 166/76; PULSE 72; RESP 16; O2SAT 94
[2022-05-23 00:19] LABS: Troponin 5 2HR 20.03 ng/L (0-10)
[2022-05-23 00:20] LABS: Troponin 5 2HR Delta -0.97 ABS# (0-10)
[2022-05-23 00:38] VITALS: BP 185/83; PULSE 72; RESP 16; O2SAT 94
== END 2022-05-23 00:45 | disposition home or self-care (01) ==
PROVIDERS: Emergency Medicine; Emergency Provider Emergency Medicine; PCP Family Medicine
DX: E11.22 Type 2 diabetes mellitus with diabetic chronic kidney disease (principal); I12.9 Hypertensive chronic kidney disease with stage 1 through stage 4 chronic kidney disease, or unspecified chronic kidney disease; N18.9 Chronic kidney disease, unspecified; Z86.73 Personal history of transient ischemic attack (TIA), and cerebral infarction without residual deficits; E78.5 Hyperlipidemia, unspecified; N39.0 Urinary tract infection, site not specified; E86.0 Dehydration; Z79.4 Long term (current) use of insulin; Z79.02 Long term (current) use of antithrombotics/antiplatelets; Z79.82 Long term (current) use of aspirin
CPT/HCPCS: 36416; 70450; 71045; 80053; 81001; 82962; 83880; 84145; 84439; 84443; 84484; 85025; 86140; 93005; 96361; 96374; 99285; J3490; J7030

== ENCOUNTER → 2022-05-29 13:12 | Outpatient (BNVA) | payer MEDICARE, OTHER, SELFPAY | PROVIDERS: PCP Family Medicine; Visit Provider Family Medicine | DX: N18.30 Chronic kidney disease, stage 3 unspecified (principal); E55.9 Vitamin D deficiency, unspecified; R80.0 Isolated proteinuria; E11.9 Type 2 diabetes mellitus without complications | CPT/HCPCS: 80048; 81000; 82040; 82306; 82310; 82570; 83036; 83735; 83970; 84100; 84156; 87086 ==